=== PATIENT | female | born 1985 | race Caucasian/White ===

== ENCOUNTER 2020-06-01 17:36 | Inpatient (IN) | payer MEDICAID, SELFPAY ==
[2020-06-01 18:02] VITALS: BP 148/73; PULSE 120; RESP 20; TEMP 36.7; O2SAT 98; BMI 24.5
--- NOTE | 2020-06-01 18:44 | ECG_ITS ---
Test Reason : SOB Blood Pressure : / mmHG Vent. Rate : 096 BPM Atrial Rate : 096 BPM P-R Int : 142 ms QRS Dur : 078 ms QT Int : 372 ms P-R-T Axes : 063 058 046 degrees QTc Int : 469 ms Normal sinus rhythm Normal ECG No previous ECGs available Referred By: Estephanie Anguiano Electronically Signed By:MARILYN DIEGO MD
--- NOTE | 2020-06-01 18:44 | XR_ITS ---
EXAMINATION: XR CHEST CLINICAL INFORMATION: Tachycardia COMPARISON: 10/13/2018 TECHNIQUE: Frontal view of the chest was obtained. FINDINGS: No significant abnormality is noted involving the heart, lungs, mediastinum, bony thorax or soft tissues. IMPRESSION: Unremarkable examination.
--- NOTE | 2020-06-01 18:58 | ED_ITS ---
HPI - Alcohol General Chief Complaint: ETOH/Substance Use Stated Complaint: vomiting 3 days Time Seen by Provider: 06/01/20 18:43 Source: patient Mode of arrival: ambulatory Limitations: no limitations History of Present Illness HPI narrative: 34-year-old female presents with acute alcohol withdrawal. She reports drinking approximately 1/5 to 1 gal of vodka daily. She stopped drinking earlier this morning, is visibly in distress, tachycardic, shaking and short of breath. She does have history of alcohol withdrawal seizures. she reports nausea, vomiting and abdominal pain for the past 3 days. MD complaint: alcohol withdrawal Last drink: Hours (ago) ( 8:00 a.m.) Amount of alcohol consumed: 1 gal Chronic alcohol use: Yes Previous visits for alcohol intoxication: Yes Recent trauma: No Associated symptoms: nausea, vomiting, diaphoresis, tremors, abdominal pain and depression Related Data Allergies Allergy/AdvReac Type Severity Reaction Status Date / Time No Known Allergies Allergy Unknown Verified 06/01/20 18:01 Review of Systems Review of Systems: Constitutional: No Weight loss, No Fever, No Chills, No Night Sweats, No Fatigue, No Malaise ENT/Mouth: No Hearing loss, No Ear Pain, No Nasal Congestion, No Sinus Pain, No Hoarseness, No sore throat, No Rhinorrhea, No Swallowing Difficulty Eyes: No Eye Pain, No Swelling, No Redness, No Foreign Body, No Discharge, No Vision Changes Cardiovascular: positive Palpitations, shortness of breath, No Dyspnea on Exertion, No Orthopnea, No Edema Respiratory: No Cough, No Sputum, No Wheezing, No Smoke Exposure, No Dyspnea Gastrointestinal: Positive Nausea, Positive Vomiting, positive Diarrhea, positiv e abdominal Pain, No Hematochezia, No Melena Genitourinary: no irregular bleeding, No Dysuria, No Urinary Frequency, No Hematuria, No Urinary Incontinence, No Urgency, No Flank Pain, No Urinary Flow Changes, No Hesitancy Musculoskeletal: No joint pain, No Myalgias, No Joint Swelling Skin: No Skin Lesions, No rash Neuro: No Weakness, No Numbness, No Paresthesias, No Loss of Consciousness, No Dizziness, No Headache Psych: No Anxiety/Panic, No Depression, No SI/HI/AH/VH, No Social Issues, Heme /Lymph: No Bruising, No Bleeding,No Lymphadenopathy Endocrine: No Polyuria, No Polydipsia, No Temperature Intolerance PMFSH Past Medical History Attestation statement: The following information was validated with the patient. Medical History EtOH dependence Social History Social History Smoking Status: Current every day smoker Smoked in Last 30 Days: No Use of substances other than those prescribed or required for medical reasons: Yes Substance Use Type: Marijuana Substance Use Frequency: Occasionally Last Used Substance: Days (ago) Any prior treatment program specific to substance use: Yes Advance Directives: No Advance Directives Information Provided: Yes Physical Exam Vital Signs: Vital Signs: Vital Signs Temp Pulse Resp BP Pulse Ox 06/01/20 22:00 120 H 18 126/89 06/01/20 21:07 97 06/01/20 20:27 112 H 24 H 126/79 06/01/20 18:02 98.1 F 120 H 20 148/73 H 98 Body Mass Index 24.5 Appearance: Alert. Oriented X3. moderate distress Eyes: Pupils equal, round and reactive to light. ENT: Pharynx normal. Neck: Normal inspection. Neck supple. CVS: tachycardic, tachypneic, diaphoretic. Pulses normal. Respiratory: tachypneic Breath sounds normal. Abdomen: Soft and tender diffusely Skin: Skin warm and dry. Normal skin color. Normal skin turgor. Extremities: No lower extremity edema. Neuro: Oriented X 3. No motor deficit. No sensory deficit. Course Course Course Narrative: patient presents in apparent distress, alcohol withdrawal, will rule out ACS as she is tachycardic with a rate of 122, tremors. We will resuscitate fluids, give IV Ativan prevent seizure as she does report having alcohol withdrawal seizures. Last drink was 8:00 a.m. this morning, she drinks approximately 1 gal of alcohol per day. Banana bag ordered, 50 mg of Librium given per request of the patient. Discussion with patient regarding plan of care, patient would like to stop usi ng alcohol and would like admission. Phenobarbital protocol started. Discussion with hospitalist for admission. Consultations Consultation #1: Amelie Time: 21:40 MDM - Alcohol MDM Narrative Medical decision making narrative: ACS, pneumonia Differential Diagnosis Differential diagnosis: Likely alcohol dependence, alcohol withdrawal syndrome and alcohol withdrawal seizure Medical Records Attestation: I reviewed the patient's medical records. Lab Data Attestation: I reviewed the patient's lab results. Result diagrams: 06/01/20 19:13 06/01/20 19:13 Labs: Lab Results 06/01/20 06/01/20 06/01/20 Range/Units 19:13 19:13 19:13 WBC 12.5 H (4.8-10.8) X10*3/uL RBC 4.69 (4.20-5.50) X10*6/uL Hgb 15.4 (12.0-16.0) g/dl Hct 43.5 (37-47) % MCV 92.8 (80-98) fL MCH 32.8 (27.0-33.0) pg MCHC 35.4 H (31.0-35.0) g/dl RDW 13.0 (11.0-16.0) % Plt Count 416 H (160-400) X10*3/uL MPV 9.2 L (9.4-12.3) fL Immature Gran % (Auto) 1.0 H (0.0-0.4) % Neut % (Auto) 73.4 H (45-73) % Lymph % (Auto) 20.1 (20-40) % [place] % (Auto) 4.4 (2-11) % Eos % (Auto) 0.6 (0-4) % Baso % (Auto) 0.5 (0-2) % Lymph # (Auto) 2.5 (1.2-4.9) X10*3/uL [place] # (Auto) 0.6 (0.1-1.2) X10*3/uL Eos # (Auto) 0.1 (0.0-0.4) X10*3/uL Baso # (Auto) 0.1 (0.0-0.2) X10*3/uL Abs Immat Gran (auto) 0.13 H (0.00-0.03) X10*3/uL Absolute Neuts (auto) 9.2 H (2.0-8.3) X10*3/uL Absolute Nucleated RBC 0.000 (0.0-0.012) X10*3/uL Nucleated RBC % (auto) 0.0 (0.0-0.2) /100WBC Sodium 138 (135-145) mmol/L Potassium 3.2 L (3.3-5.1) mmol/l Chloride 98 (96-108) mmol/L Carbon Dioxide 23 (22-29) mmol/L Anion Gap 20 (12-20) BUN 9 (9-16) mg/dL Creatinine 0.96 (0.5-1.4) mg/dL Estim Creat Clear Calc 69.4 Estimated GFR > 60 Random Glucose 179 H (60-115) mg/dL Calcium 10.4 H (8.4-10.2) mg/dL Magnesium 1.8 (1.6-2.6) mg/dL Total Bilirubin 1.6 H (0.0-1.0) mg/dL Direct Bilirubin (0.0-0.5) mg/dL AST 124 H (5-31) U/L ALT 54 H (0-31) U/L Alkaline Phosphatase 85 (39-117) U/L Troponin I High Sens < 3.5 (<3.5-17.0) ng/L Total Protein 9.4 H (6.5-8.0) g/dL Albumin 5.4 H (3.5-5.0) g/dL Lipase (8-78) U/L Ethyl Alcohol mg/dL 06/01/20 06/01/20 Range/Units 19:13 19:13 WBC (4.8-10.8) X10*3/uL RBC (4.20-5.50) X10*6/uL Hgb (12.0-16.0) g/dl Hct (37-47) % MCV (80-98) fL MCH (27.0-33.0) pg MCHC (31.0-35.0) g/dl RDW (11.0-16.0) % Plt Count (160-400) X10*3/uL MPV (9.4-12.3) fL Immature Gran % (Auto) (0.0-0.4) % Neut % (Auto) (45-73) % Lymph % (Auto) (20-40) % [place] % (Auto) (2-11) % Eos % (Auto) (0-4) % Baso % (Auto) (0-2) % Lymph # (Auto) (1.2-4.9) X10*3/uL [place] # (Auto) (0.1-1.2) X10*3/uL Eos # (Auto) (0.0-0.4) X10*3/uL Baso # (Auto) (0.0-0.2) X10*3/uL Abs Immat Gran (auto) (0.00-0.03) X10*3/uL Absolute Neuts (auto) (2.0-8.3) X10*3/uL Absolute Nucleated RBC (0.0-0.012) X10*3/uL Nucleated RBC % (auto) (0.0-0.2) /100WBC Sodium (135-145) mmol/L Potassium (3.3-5.1) mmol/l Chloride (96-108) mmol/L Carbon Dioxide (22-29) mmol/L Anion Gap (12-20) BUN (9-16) mg/dL Creatinine (0.5-1.4) mg/dL Estim Creat Clear Calc Estimated GFR Random Glucose (60-115) mg/dL Calcium (8.4-10.2) mg/dL Magnesium (1.6-2.6) mg/dL Total Bilirubin 1.6 H (0.0-1.0) mg/dL Direct Bilirubin 0.7 H (0.0-0.5) mg/dL AST 124 H (5-31) U/L ALT 54 H (0-31) U/L Alkaline Phosphatase 84 (39-117) U/L Troponin I High Sens (<3.5-17.0) ng/L Total Protein 9.4 H (6.5-8.0) g/dL Albumin 5.4 H (3.5-5.0) g/dL Lipase 22 (8-78) U/L Ethyl Alcohol 12 mg/dL Imaging Data Chest x-ray: Attestation: I personally reviewed and interpreted this imaging study as follows: Radiologist's impression: TECHNIQUE: Frontal view of the chest was obtained. FINDINGS: No significant abnormality is noted involving the heart, lungs, mediastinum, bony thorax or soft tissues. IMPRESSION: Unremarkable examination. ECG Data Attestation: I personally reviewed and interpreted this ECG as follows: ECG interpretation date: 06/01/20 ECG interpretation time: 19:26 Interpretation: Vent. Rate : 096 BPM Atrial Rate : 096 BPM P-R Int : 142 ms QRS Dur : 078 ms QT Int : 372 ms P-R-T Axes : 063 058 046 degrees QTc Int : 469 ms Normal sinus rhythm Normal ECG No previous ECGs available Critical Care Time Critical Care Time Critical Care Time: Yes Total Critical Care Time: 60 Attestation: I have personally provided critical care time exclusive of time spent on separately billable procedures. Time includes review of laboratory data, radiology results, discussion with consultants, and monitoring for potential decompensation. Interventions were performed as documented. Discharge Plan Discharge Clinical Impression: Alcohol withdrawal syndrome Qualifiers: Complication of substance-induced condition: uncomplicated Qualified Code(s): F10.230 - Alcohol dependence with withdrawal, uncomplicated Patient Disposition: Admitted As Inpatient
[2020-06-01] MEDS: 0.9 % Sodium Chloride 1,000 ML 999 ML IVCONT (19:11)
[2020-06-01] MEDS: LORazepam 2 MG/ML VIAL IVPUSH (19:12)
[2020-06-01 19:22] LABS: MANUAL DIFF FLAG NO
[2020-06-01 19:31] LABS: Basophils Absolute Auto 0.1 X10*3/uL (0.0-0.2); Basophils Percent Auto 0.5 % (0-2); Eosinophils Absolute Auto 0.1 X10*3/uL (0.0-0.4); Eosinophils Percent Auto 0.6 % (0-4); Hematocrit 43.5 % (37-47); Hemoglobin 15.4 g/dl (12.0-16.0); Imm Gran Abs Auto 0.13 X10*3/uL (0.00-0.03); Lymphocytes Absolute Auto 2.5 X10*3/uL (1.2-4.9); Lymphocytes Percent Auto 20.1 % (20-40); Mean Corpuscular HGB Conc 35.4 g/dl (31.0-35.0); Mean Corpuscular Hemoglobin 32.8 pg (27.0-33.0); Mean Corpuscular Volume 92.8 fL (80-98); Mean Platelet Volume 9.2 fL (9.4-12.3); Monocytes Absolute Auto 0.6 X10*3/uL (0.1-1.2); Monocytes Percent Auto 4.4 % (2-11); Neutrophils Absolute Auto 9.2 X10*3/uL (2.0-8.3); Neutrophils Percent Auto 73.4 % (45-73); Platelet Count 416 X10*3/uL (160-400); Red Blood Count 4.69 X10*6/uL (4.20-5.50); White Blood Count 12.5 X10*3/uL (4.8-10.8)
[2020-06-01] MEDS: diphenhydrAMINE HCL 50 MG/ML VIAL IVPUSH (19:51)
[2020-06-01] MEDS: Metoclopramide HCl 10 MG/2 ML VIAL IVPUSH (19:51)
[2020-06-01] MEDS: chlordiazePOXIDE HCl 25 MG CAPSULE 50 MG PO (19:52)
[2020-06-01 19:59] LABS: Alanine Aminotransferase 54 U/L (0-31); Albumin Level 5.4 g/dL (3.5-5.0); Alkaline Phosphatase 85 U/L (39-117); Aspartate Amino Transferase 124 U/L (5-31); Bilirubin Total 1.6 mg/dL (0.0-1.0); Blood Urea Nitrogen 9 mg/dL (9-16); Creatinine Clr Calc Pharmacy 69.4; Estimated Glomerular Filt Rate > 60; Glucose Random 179 mg/dL (60-115); Magnesium 1.8 mg/dL (1.6-2.6); Total Protein 9.4 g/dL (6.5-8.0)
[2020-06-01 20:04] LABS: Troponin-I High Sensitivity < 3.5 ng/L (<3.5-17.0)
[2020-06-01 20:09] LABS: Anion Gap 20 (12-20); Calcium 10.4 mg/dL (8.4-10.2); Carbon Dioxide 23 mmol/L (22-29); Chloride 98 mmol/L (96-108); Potassium 3.2 mmol/l (3.3-5.1); Sodium 138 mmol/L (135-145)
[2020-06-01 20:27] VITALS: BP 126/79; PULSE 112; RESP 24
[2020-06-01 21:07] VITALS: O2SAT 97
[2020-06-01 21:07] LABS: Ethanol 12 mg/dL
[2020-06-01 21:11] LABS: Alanine Aminotransferase 54 U/L (0-31); Albumin Level 5.4 g/dL (3.5-5.0); Alkaline Phosphatase 84 U/L (39-117); Aspartate Amino Transferase 124 U/L (5-31); Bilirubin Direct 0.7 mg/dL (0.0-0.5); Bilirubin Total 1.6 mg/dL (0.0-1.0); Lipase 22 U/L (8-78); Total Protein 9.4 g/dL (6.5-8.0)
[2020-06-01 22:00] VITALS: BP 126/89; PULSE 120; RESP 18
[2020-06-01] MEDS: PHENobarbitaL sodium 130 MG/ML VIAL 229 MG IM (22:27)
--- NOTE | 2020-06-01 22:31 | PC.NURSE ---
patient medicated per order, patients sinus tach on diagnostic cardiac sonographer low 100s, will continue to monitor.
[2020-06-02] VITALS (9 sets, daily range): BP systolic 109–138; BP diastolic 62–87; PULSE 78–97; RESP 16–18; TEMP 36.2–36.7; O2SAT 95–100
[2020-06-02 02:13] LABS: Amphetamine Screen Urine Not Detected (Not Detect); Barbiturates, Urine Not Detected (Not Detect); Benzodiazepines Screen Urine POSITIVE (Not Detect); Cannabinoid Screen Urine POSITIVE (Not Detect); Cocaine Screen Urine POSITIVE (Not Detect); Opiate Screen Urine Not Detected (Not Detect); Phencyclidine Screen Urine Not Detected (Not Detect)
[2020-06-02] MEDS: PHENobarbitaL sodium 130 MG/ML VIAL 171 MG IM ×2 (02:40→05:01)
[2020-06-02] MEDS: 0.9 % Sodium Chloride Flush 3 ML SYRINGE IVFLUSH ×4 (02:43→21:38)
--- NOTE | 2020-06-02 05:22 | P.HPIM_ITS ---
History of Present Illness Date of Service: 06/01/20 Chief Complaint: alcohol withdrawal this is a 34-year-old female with past medical history of anxiety and depression, polysubstance abuse including alcohol and cocaine as well as Percocet abuse in the past presents to the hospital reporting nausea and vomiting and alcohol withdrawal. patient is significantly lethargic and unable to give me any history. She is unable to stay awake for more than seconds. When asked her what brought into the hospital she tells me that she was dehydrated but then falls back asleep. Therefore history is obtained mostly from EMR. It appears the patient was recently prescribed Librium for alcohol withdrawals. Was supposed to go to detox but could not due to lack of exceptional children teacher. She ran out of Librium and has been vomiting for 3 days. unable to obtain full review of system is patient is very lethargic and unwilling cyst a up long enough On arrival to the ED hemodynamically stable with no significant abnormal vitals Except for an increased in heart rate to 120. improved to 87. Lab significant for WBC count of 12, potassium 3.2, calcium 10.4, total bili of 1.6, AST of 124, ALT of 54, UDS UDS positive for benzodiazepine cocaine and marijuana unable to obtain past medical history from patient past medical history: Polysubstance abuse, anxiety and depression, alcohol dependence past surgical history: Unknown family history: Unknown social history: comes from home, abuses cocaine, alcohol, UDS is positive for benzos Review of Systems Review of Systems: Yes all other systems are reviewed and are negative PMFSH Medical History EtOH dependence Social History Smoking Status: Current every day smoker Smoked in Last 30 Days: No Use of substances other than those prescribed or required for medical reasons: Yes Substance Use Type: Marijuana Substance Use Frequency: Occasionally Last Used Substance: Days (ago) Currently Displaying Signs/Symptoms of Drug Intoxication Withdrawal: No Any prior treatment program specific to substance use: Yes Advance Directives: No Advance Directives Information Provided: Yes Do you have thoughts of harming others: None Do you have a plan to hurt others: No Plan Meds Allergies Allergy/AdvReac Type Severity Reaction Status Date / Time No Known Allergies Allergy Unknown Verified 06/01/20 18:01 Home Medications Medication Instructions Recorded Confirmed Type No Known Home Meds 06/02/20 06/02/20 History Physical Exam Vital Signs and Narrative: Vital Signs: Last Vital Signs Temp 97.5 F 06/02/20 02:41 Pulse 87 06/02/20 02:41 Resp 16 06/02/20 03:44 BP 112/64 06/02/20 02:41 Pulse Ox 95 06/02/20 02:41 Body Mass Index 24.5 Const: Other: patient is somnolent but arousable, unable to stay long enough to give full history otherwise does not appear to be in distress General: no acute distress Eyes: General: appearance normal, both eyes and all related structures Pupils: Equal, round and reactive pupils present Resp: Effort & Inspection: normal respiratory effort, able to speak in complete sentences and abnormal respiratory pattern Auscultation: clear to auscultation bilaterally Cardio: Rate: regular rate Rhythm: regular rhythm GI: Palpation (GI): Soft to palpation Auscultation: normal bowel sounds Skin: General skin exam: no rashes or lesions noted Neuro: Cranial nerves: Yes Equal, round and reactive pupils present Cognition (Neuro): normal cognition Extrem: General: Yes normal to inspection and Yes no pedal edema Results Labs Labs: Laboratory Tests 06/01/20 06/01/20 06/01/20 19:13 19:13 19:13 WBC 12.5 H RBC 4.69 Hgb 15.4 Hct 43.5 MCV 92.8 MCH 32.8 MCHC 35.4 H RDW 13.0 Plt Count 416 H MPV 9.2 L Immature Gran % (Auto) 1.0 H Neut % (Auto) 73.4 H Lymph % (Auto) 20.1 [place] % (Auto) 4.4 Eos % (Auto) 0.6 Baso % (Auto) 0.5 Lymph # (Auto) 2.5 [place] # (Auto) 0.6 Eos # (Auto) 0.1 Baso # (Auto) 0.1 Abs Immat Gran (auto) 0.13 H Absolute Neuts (auto) 9.2 H Absolute Nucleated RBC 0.000 Nucleated RBC % (auto) 0.0 Sodium 138 Potassium 3.2 L Chloride 98 Carbon Dioxide 23 Anion Gap 20 BUN 9 Creatinine 0.96 Estim Creat Clear Calc 69.4 Estimated GFR > 60 Random Glucose 179 H Calcium 10.4 H Magnesium 1.8 Total Bilirubin 1.6 H Direct Bilirubin AST 124 H ALT 54 H Alkaline Phosphatase 85 Troponin I High Sens < 3.5 Total Protein 9.4 H Albumin 5.4 H Lipase Urine Opiates Screen Ur Barbiturates Screen Ur Phencyclidine Scrn Ur Amphetamines Screen U Benzodiazepines Scrn Urine Cocaine Screen U Marijuana (THC) Screen Ethyl Alcohol 06/01/20 06/01/20 06/02/20 19:13 19:13 01:46 WBC RBC Hgb Hct MCV MCH MCHC RDW Plt Count MPV Immature Gran % (Auto) Neut % (Auto) Lymph % (Auto) [place] % (Auto) Eos % (Auto) Baso % (Auto) Lymph # (Auto) [place] # (Auto) Eos # (Auto) Baso # (Auto) Abs Immat Gran (auto) Absolute Neuts (auto) Absolute Nucleated RBC Nucleated RBC % (auto) Sodium Potassium Chloride Carbon Dioxide Anion Gap BUN Creatinine Estim Creat Clear Calc Estimated GFR Random Glucose Calcium Magnesium Total Bilirubin 1.6 H Direct Bilirubin 0.7 H AST 124 H ALT 54 H Alkaline Phosphatase 84 Troponin I High Sens Total Protein 9.4 H Albumin 5.4 H Lipase 22 Urine Opiates Screen Not Detected Ur Barbiturates Screen Not Detected Ur Phencyclidine Scrn Not Detected Ur Amphetamines Screen Not Detected U Benzodiazepines Scrn POSITIVE H Urine Cocaine Screen POSITIVE H U Marijuana (THC) Screen POSITIVE H Ethyl Alcohol 12 Assessment and Plan (1) Alcohol withdrawal syndrome: Qualifiers: Complication of substance-induced condition: uncomplicated Qualified Code(s): F10.230 - Alcohol dependence with withdrawal, uncomplicated Status: Acute (2) EtOH dependence: Status: Acute (3) Anxiety and depression: Status: Acute this is a 34-year-old female who presents to the hospital for detox of alcohol # alcohol withdrawal - has nausea vomiting, tremors - was on Librium for ran out and return to the hospital in withdrawal symptoms - is interested in completely quitting plan: - Patient started on phenobarbital in the ED, will continue( drinks about 1 gal of vodka daily) - folic acid - thiamine - continue crisis team consult ordered by ED # depression anxiety - monitor DVT prophylaxis: Lovenox date of service 06/01/2020
[2020-06-02 07:55] LABS: MANUAL DIFF FLAG NO
[2020-06-02 08:09] LABS: Basophils Absolute Auto 0.1 X10*3/uL (0.0-0.2); Basophils Percent Auto 0.5 % (0-2); Eosinophils Absolute Auto 0.2 X10*3/uL (0.0-0.4); Eosinophils Percent Auto 2.2 % (0-4); Hematocrit 34.1 % (37-47); Hemoglobin 11.9 g/dl (12.0-16.0); Imm Gran Abs Auto 0.04 X10*3/uL (0.00-0.03); Imm Gran Pct Auto 0.4 % (0.0-0.4); Lymphocytes Absolute Auto 2.8 X10*3/uL (1.2-4.9); Lymphocytes Percent Auto 28.5 % (20-40); Mean Corpuscular HGB Conc 34.9 g/dl (31.0-35.0); Mean Corpuscular Hemoglobin 33.1 pg (27.0-33.0); Mean Platelet Volume 9.3 fL (9.4-12.3); Monocytes Absolute Auto 0.6 X10*3/uL (0.1-1.2); Monocytes Percent Auto 6.5 % (2-11); Neutrophils Absolute Auto 6.1 X10*3/uL (2.0-8.3); Neutrophils Percent Auto 61.9 % (45-73); Platelet Count 313 X10*3/uL (160-400); Red Blood Count 3.59 X10*6/uL (4.20-5.50); Red Cell Distribution Width 12.9 % (11.0-16.0); White Blood Count 9.8 X10*3/uL (4.8-10.8)
[2020-06-02] MEDS: Folic Acid 1 MG TABLET PO (08:27)
[2020-06-02] MEDS: Thiamine HCL 100 MG TABLET PO (08:27)
[2020-06-02] MEDS: Acetaminophen 325 MG TABLET 650 MG PO (08:30)
[2020-06-02 08:42] LABS: Anion Gap 10 (12-20); Blood Urea Nitrogen 12 mg/dL (9-16); Carbon Dioxide 27 mmol/L (22-29); Chloride 103 mmol/L (96-108); Creatinine Clr Calc Pharmacy 82.2; Estimated Glomerular Filt Rate > 60; Glucose Random 105 mg/dL (60-115); Sodium 136 mmol/L (135-145)
--- NOTE | 2020-06-02 10:00 | PC.NURSE ---
Dr. Johnson aware of pt wbc 34.6
--- NOTE | 2020-06-02 12:14 | MHC.CM.PN ---
PATIENT VERIFIES THAT SHE HAS TWO CHILDREN. ONE 15 YEAR OLD MALE AND AN 11 MONTH OLD DAUGHTER. SHE REPORTS THAT BOTH CHILDREN ARE WITH THEIR FATHER WHO LIVES ELSEWHERE. PATIENT IS AWARE THAT THIS SALES AND MARKETING ASSISTANT HAS DOCUMENTATION STATING THAT THERE ARE CHILDREN IN THE HOME;THEREFORE THE RELATED CONVERSATION. 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 NO DME OR VNA. SHE IS EXPRESSING INTEREST IN A CARE TEAM CONSULT HOSPITALIST MADE AWARE. CASE MANAGMEENT FOLLOWING. THIS SALES AND MARKETING ASSISTANT TO CONTACT [facility] WHEN OFFICE IS OPEN FOR IN DEPTH CONVERSATION. CASE MANAGEMENT AVAILABLE FOR ANY FURTHER DISCHARGE NEEDS.
[2020-06-02] MEDS: Nicotine Polacrilex 2 MG GUM BUCCAL (12:16)
[2020-06-02] MEDS: Throat Lozenge, Medicated LOZENGE 1 LOZENGE MUCOUS MEM (12:16)
--- NOTE | 2020-06-02 14:05 | HO.PM.IMPN ---
Subjective Subjective Date of Service: 06/02/20 Interval History: Alcohol withdrawal Physical Exam Vital Signs: Vital Signs: Vital Signs Temp Pulse Resp BP Pulse Ox 06/02/20 11:07 97.3 F 95 18 117/77 99 06/02/20 08:24 97.5 F 92 18 138/87 98 06/02/20 03:44 16 06/02/20 02:41 97.5 F 87 16 112/64 95 06/02/20 00:00 93 18 126/79 98 06/01/20 22:00 120 H 18 126/89 06/01/20 21:07 97 06/01/20 20:27 112 H 24 H 126/79 06/01/20 18:02 98.1 F 120 H 20 148/73 H 98 Body Mass Index 24.5 physical exam : cvs: rrr, [id number]. res: clear to auscultation ,no rhonchii or wheezing abd: no rebound or guarding ,nt, bs present. ext pulses present , no cyanosis neuro: axo3 , nonfocal ,still has tremers Objective Data Current Medications Generic Name Dose Route Start Last Admin Trade Name Freq PRN Reason Stop Dose Admin Acetaminophen 650 mg 06/02/20 09:33 06/02/20 08:30 Acetaminophen 325 Mg Tablet PO 650 mg Q6H PRN Administration Pain and Fever Benzocaine 1 lozenge 06/02/20 10:44 06/02/20 12:16 Throat Lozenge, Medicated Lozenge MUCOUS MEM 1 lozenge Q2H PRN Administration Sore Throat Docusate Sodium 100 mg 06/02/20 02:28 Docusate Sodium 100 Mg Capsule PO DAILY PRN Constipation Folic Acid 1 mg 06/02/20 09:00 06/02/20 08:27 Folic Acid 1 Mg Tablet PO 1 mg DAILY IRISH Administration Medication 1 each 06/02/20 09:00 No Benzodiazepines MISCELLANE DAILY IRISH Nicotine Polacrilex 2 mg 06/02/20 10:42 06/02/20 12:16 Nicotine Polacrilex 2 Mg Gum BUCCAL 2 mg Q2H PRN Administration Nicotine Cravings Ondansetron HCl 4 mg 06/02/20 02:28 Ondansetron Hcl 4 Mg/2 Ml Vial IVPUSH Q8H PRN Nausea and Vomiting Phenobarbital 45 mg 06/03/20 09:00 Phenobarbital 15 Mg Tablet PO 06/04/20 21:01 BID IRISH Phenobarbital 30 mg 06/05/20 09:00 Phenobarbital 30 Mg Tablet PO 06/06/20 21:01 BID IRISH Phenobarbital 15 mg 06/07/20 09:00 Phenobarbital 15 Mg Tablet PO 06/08/20 09:01 DAILY IRISH Sodium Chloride 3 ml 06/02/20 02:28 06/02/20 08:30 0.9 % Sodium Chloride Flush 3 Ml Syringe IVFLUSH 3 ml QSHIFT IRISH Administration Thiamine HCl 100 mg 06/02/20 09:00 06/02/20 08:27 Thiamine Hcl 100 Mg Tablet PO 100 mg DAILY IRISH Administration Labs CBC & Chem 7: 06/02/20 07:31 06/02/20 07:31 Assessment and Plan (1) Alcohol withdrawal syndrome: Status: Acute Assessment and Plan: 1.alcohol withdrawal Nausea vomiting improving, still has tremors. was on Librium for ran out and return to the hospital in withdrawal symptoms is interested in completely quitting Continue CIWA, phenobarb protocol, folic acid, thiamine. 2. Smoking: We will add nicotine patch. 3. depression anxiety - monitor, we may add clondine , atrax
[2020-06-02] MEDS: cloNIDine HCL 0.1 MG TABLET PO ×2 (16:17→21:35)
[2020-06-02] MEDS: PHENobarbitaL 15 MG TABLET 45 MG PO (22:13)
[2020-06-03 04:04] VITALS: BP 106/75; PULSE 90; RESP 18; TEMP 36.2; O2SAT 99
[2020-06-03 07:25] LABS: Alanine Aminotransferase 48 U/L (0-31); Alkaline Phosphatase 61 U/L (39-117); Anion Gap 12 (12-20); Aspartate Amino Transferase 94 U/L (5-31); Bilirubin Direct 0.2 mg/dL (0.0-0.5); Bilirubin Total 0.5 mg/dL (0.0-1.0); Blood Urea Nitrogen 14 mg/dL (9-16); Calcium 9.3 mg/dL (8.4-10.2); Carbon Dioxide 26 mmol/L (22-29); Chloride 103 mmol/L (96-108); Creatinine Clr Calc Pharmacy 82.2; Estimated Glomerular Filt Rate > 60; Glucose Random 113 mg/dL (60-115); Sodium 137 mmol/L (135-145); Total Protein 6.9 g/dL (6.5-8.0)
[2020-06-03] MEDS: Thiamine HCL 100 MG TABLET PO (07:28)
[2020-06-03] MEDS: Folic Acid 1 MG TABLET PO (07:28)
[2020-06-03] MEDS: cloNIDine HCL 0.1 MG TABLET PO (07:28)
[2020-06-03] MEDS: PHENobarbitaL 15 MG TABLET 45 MG PO (07:29)
[2020-06-03] MEDS: 0.9 % Sodium Chloride Flush 3 ML SYRINGE IVFLUSH (07:30)
[2020-06-03 07:43] VITALS: BP 114/73; PULSE 78; RESP 19; TEMP 36.5; O2SAT 100
--- NOTE | 2020-06-03 08:59 | MHC.CM.PN ---
dc plan is for patient to return home no svcs. call will need to be made to [facility] during the week, unable to do so today as it is state holiday. cm to cont. to follow.
--- NOTE | 2020-06-03 09:26 | MHC.CARE ---
CARE Team consult RE: alcohol CARE Team met with the 34 year old Arabic speaking female in bed 377-1 of S3 to discuss alcohol use and recovery supports. Patient reports she gets anxious at night and feels her heart racing which prompts her to start drinking. Patient reports when she wakes up feeling sick she will sometimes reach for a drink as well. Patient reports that she tries to manage the anxiety with coping skills, including deep breathing and taking showers, however she feels as though it is too severe and she would benefit from anxiety medication. Discussed with patient outpatient therapy and getting connected with a psychiatrist. Patient reports she was previously getting counseling through [email or web address] in [place] and that she found it helpful. Patient provided with the number for [email or web address], in addition to other therapy agencies, and was encouraged to reach out to them to restart services. Patient reports she is also waiting to get connected with a PCP through [facility]. Patient informed that her PCP may be able to prescribe her medication for anxiety, and that a therapist would be able to refer her to psychiatry for medication management. Patient acknowledged and reported no questions regarding this process. Patient reports that she was previously addicted to pain medication and that she got on Suboxone and then stopped the Suboxone with the support of a therapist. Patient reports during that time, she became familiar with recovery supports in the community such as support groups. Patient reports she is not interested in support groups at this time, however patient accepted information on Intensive Outpatient Programs in the area, specifically a Dual Diagnosis group run by [facility]. Patient reports that at times she has cravings to have a drink. This insurance underwriter sales discussed Vivitrol/ Naltrexone with patient and provided her with information on the [facility] where she could receive this medication. This insurance underwriter sales also discussed additional coping techniques that patient can employ when feeling anxious or having cravings. Patient reports she has also been reducing her nicotine consumption and is down to just one cigarette a day. Patient reports that her Father relapsed on alcohol after 10 years of sobriety and that he is also trying to get into recovery. Patient encouraged to reach out to family and friends for support when she feels like she may relapse. Patient acknowledged and reports no questions at this time regarding the resources provided. Discussed case with patient's RN, Geno. CARE Team available as needed.
[2020-06-03 11:21] VITALS: BP 113/69; PULSE 79; RESP 18; TEMP 36.3; O2SAT 99
[2020-06-03 14:42] LABS: CDIFF Ag Negative (Negative); CDIFF Internal ctrl Dots and bkg OK (V); CDiff Toxin Negative (Negative)
[2020-06-03 15:06] LABS: Leukocytes Stool Qualitative NEGATIVE (NEGATIVE)
[2020-06-03 16:00] VITALS: BP 119/72; PULSE 76; TEMP 35.9; O2SAT 99
--- NOTE | 2020-06-03 17:54 | PM.DS ---
DS: Providers Provider Date of admission: 06/01/20 22:41 Primary care physician: Courtney Machuca MD Consults: 06/03/20 08:00 Consult to Care Team Routine Comment: Reason for consultation: alcohol DS: Diagnosis Discharge Diagnosis (1) Alcohol withdrawal syndrome: Status: Acute DS: Summary Hospital Course Hospital Course: HPI:34-year-old female with past medical history of anxiety and depression, polysubstance abuse including alcohol and cocaine as well as Percocet abuse in the past presents to the hospital reporting nausea and vomiting and alcohol withdrawal. patient is significantly lethargic and unable to give me any history. She is unable to stay awake for more than seconds. When asked her what brought into the hospital she tells me that she was dehydrated but then falls back asleep. Therefore history is obtained mostly from EMR. It appears the patient was recently prescribed Librium for alcohol withdrawals. Was supposed to go to detox but could not due to lack of attendant [facility]. She ran out of Librium and has been vomiting for 3 days. unable to obtain full review of system is patient is very lethargic and unwilling cyst a up long enough On arrival to the ED hemodynamically stable with no significant abnormal vitals Except for an increased in heart rate to 120. improved to 87. Lab significant for WBC count of 12, potassium 3.2, calcium 10.4, total bili of 1.6, AST of 124, ALT of 54, UDS UDS positive for benzodiazepine cocaine and marijuana unable to obtain past medical history from patient past medical history: Polysubstance abuse, anxiety and depression, alcohol dependence. Hospital course problem wagner section: Patient came with alcohol withdrawal -started on phenobarb protocol : subsequently patient improved significantly. going home with small dose of Atarax because of anxiety limited supply - patient was told to make the PCP appointment and follow-up outpatient. patient had few loose bowel movements initially which has improved significantly, she said that when she is drinks excessive alcohol she has this episodes : now seems improving. stool for WBC and C diff negative. patient denies any abdominal pain or fever . if her diarrhea worsens or any abdominal pain she can come back to the nearest emergency room. patient also has mild elevated of LFTs which are improving probably , probably elevated LFT related to alcohol use, patient was told to repeat LFTs with PCP and get an PCP appointment out patiently. Patient initially had hypokalemia which was repleted and improved also her mild hyper calcemia improved with hydration. please repeat renal function and electrolytes outpatient with PCP and further management outpatient. Time Spent with Patient Time attestation: Total time spent providing and/or coordinating discharge services: Physical Exam Vital Signs: Vital Signs: Vital Signs Temp Pulse Resp BP Pulse Ox 06/03/20 16:00 96.7 F L 76 119/72 99 06/03/20 11:21 97.3 F 79 18 113/69 99 06/03/20 07:43 97.7 F 78 19 114/73 100 06/03/20 04:04 97.1 F 90 18 106/75 99 06/02/20 23:34 98.1 F 95 18 109/62 100 06/02/20 21:35 78 117/76 06/02/20 19:25 97.5 F 97 112/70 99 Body Mass Index 24.5 DS: Data Data Completed and Pending Labs on day of discharge: Labs from last 24 hours 06/03/20 06/03/20 06/03/20 13:44 13:44 06:29 Sodium 137 Potassium 4.0 Chloride 103 Carbon Dioxide 26 Anion Gap 12 BUN 14 Creatinine 0.81 Estim Creat Clear Calc 82.2 Estimated GFR > 60 Random Glucose 113 Calcium 9.3 Total Bilirubin 0.5 Direct Bilirubin 0.2 AST 94 H ALT 48 H Alkaline Phosphatase 61 D Total Protein 6.9 D Albumin 4.0 D Stool Leukocytes, Qual NEGATIVE C. difficile Toxin A&B Negative C. difficile Antigen Negative C. difficile Interpret SEE NOTE Discharge Plan Discharge Patient Disposition: Home, Self-Care Referrals: Courtney Todd MD [Primary Care Provider] - Discharge Medications: New nicotine (polacrilex) 2 mg Gum 2 mg buccal Q2H PRN (Reason: Nicotine Cravings) Qty: 20 RF: 0 hydroxyzine HCl 25 mg Tablet 25 mg PO Q8H PRN (Reason: Anxiety) Qty: 4 RF: 0 Discharge Orders: Discharge Order (Routine); Ordered 06/03/20 Ordered By: Lesli Pathak Diet: advance to your usual diet Activity on Discharge: As tolerated Visit Report Forms: Patient Portal Discharge page Care Plan Goals: Patient came with alcohol withdrawal -started on phenobarb protocol : subsequently patient improved significantly. going home with small dose of Atarax because of anxiety limited supply - patient was told to make the PCP appointment and follow-up outpatient. patient had few loose bowel movements initially which has improved significantly, she said that when she is drinks excessive alcohol she has this episodes : now seems improving. stool for WBC and C diff negative. patient denies any abdominal pain or fever . if her diarrhea worsens or any abdominal pain she can come back to the nearest emergency room. Health Concerns: As above. Plan of Treatment: As above.
[2020-06-03] MEDS: hydrOXYzine HCL 25 MG TABLET PO (18:13)
[2020-06-03] MEDS: Nicotine Polacrilex 2 MG GUM BUCCAL (19:35)
== END 2020-06-03 19:30 | disposition home or self-care (01) | DRG 775 ==
LOC: HO.ED 22:31 → HO.S3 22:55
PROVIDERS: Nurse Practitioner Family; Admitting Provider Internal Medicine; Emergency Provider Emergency Medicine Emergency Medical Services; PCP Internal Medicine; Visit Provider Internal Medicine
DX: F10.230 Alcohol dependence with withdrawal, uncomplicated (principal); F17.210 Nicotine dependence, cigarettes, uncomplicated; F41.9 Anxiety disorder, unspecified; F32.9 Major depressive disorder, single episode, unspecified; F19.10 Other psychoactive substance abuse, uncomplicated; Z71.6 Tobacco abuse counseling; Z79.899 Other long term (current) drug therapy
CPT/HCPCS: 36415; 71045; 80048; 80053; 80076; 80307; 80320; 83690; 83735; 84484; 85025; 87324; 87449; 89055; 93005; 96361; 96365; 96372; 96375; 99285; 99291; J1200; J2060; J2560; J2765; J3411

== ENCOUNTER 2020-06-08 14:26 | Emergency (ER) | payer OTHER, SELFPAY ==
[2020-06-08 14:37] VITALS: BP 136/88; PULSE 97; RESP 16; TEMP 36.8; O2SAT 99; BMI 24.5
--- NOTE | 2020-06-08 16:35 | ED.SKABFB ---
HPI - Skin/Abscess/Foreign Bdy General Chief complaint: Skin/Abscess/Foreign Body Stated complaint: swelling at flu injection spot Time Seen by Provider: 06/08/20 14:49 Source: patient Mode of arrival: ambulatory Limitations: no limitations History of Present Illness HPI narrative: 32-year-old female presenting with tender area to the left buttock after receiving IM injection. States she was in the hospital for alcohol withdrawal for which she received IM injection of phenobarbital. States otherwise she has been doing very well has not drink in over a week. States she noticed it slight tender area. There is no redness, swelling, discharge. MD complaint: other Onset (ago): day(s) Tetanus up to date: yes Location: buttocks ( Left buttock) Severity: mild Related Data Previous Rx's Medication Instructions Recorded hydroxyzine HCl 25 mg PO Q8H PRN #4 tab 06/03/20 nicotine (polacrilex) 2 mg BUCCAL Q2H PRN #20 ea 06/03/20 Allergies Allergy/AdvReac Type Severity Reaction Status Date / Time No Known Allergies Allergy Unknown Verified 06/01/20 18:01 Review of Systems Review of Systems: Constitutional: No Weight loss, No Fever, No Chills, No Night Sweats, No Fatigue, No Malaise ENT/Mouth: No Hearing loss, No Ear Pain, No Nasal Congestion, No Sinus Pain, No Hoarseness, No sore throat, No Rhinorrhea, No Swallowing Difficulty Eyes: No Eye Pain, No Swelling, No Redness, No Foreign Body, No Discharge, No Vision Changes Cardiovascular: No Chest Pain, No SOB, No Dyspnea on Exertion, No Orthopnea, No Edema, No Palpitations Respiratory: No Cough, No Sputum, No Wheezing, No Smoke Exposure, No Dyspnea Gastrointestinal: No Nausea, No Vomiting, No Diarrhea, No Constipation, No abdominal Pain, No Hematochezia, No Melena Genitourinary: no irregular bleeding, No Dysuria, No Urinary Frequency, No Hematuria, No Urinary Incontinence, No Urgency, No Flank Pain, No Urinary Flow Changes, No Hesitancy Musculoskeletal: No joint pain, No Myalgias, No Joint Swelling Skin: No Skin Lesions, No rash Neuro: No Weakness, No Numbness, No Paresthesias, No Loss of Consciousness, No Dizziness, No Headache Psych: No Anxiety/Panic, No Depression, No SI/HI/AH/VH, No Social Issues Heme/Lymph: No Bruising, No Bleeding,No Lymphadenopathy Endocrine: No Polyuria, No Polydipsia, No Temperature Intolerance Yes all other systems are reviewed and are negative [facility] Past Medical History Attestation statement: The following information was validated with the patient. Medical History (Updated 06/08/20 @ 14:51 by Archie Tapia NP) EtOH dependence Social History Social History Smoking Status: Current every day smoker Substance Use Type: Marijuana Advance Directives: No Advance Directives Information Provided: No Physical Exam Vital Signs: Vital Signs: Vital Signs Temp Pulse Resp BP Pulse Ox 06/08/20 14:37 98.2 F 97 16 136/88 99 Body Mass Index 24.5 Reviewed Const: General: cooperative and healthy appearing; No acute distress or intoxicated appearing Nutritional Appearance: average body habitus Orientation/consciousness: patient oriented x3 HENMT: Head: Yes normal to inspection Ears: hearing grossly normal bilaterally Eyes: General: appearance normal, both eyes and all related structures Visual Ramsey: normal visual ramsey by confrontation Chest: Chest palpation & inspection: normal inspection of the chest Resp: Effort & Inspection: normal respiratory effort Cardio: Jugular venous distension: no JVD : General: Yes no CVA tenderness Back/Spine/Pelvis: Back: no CVA tenderness 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 No erythema, induration, open area or discharge. General skin exam: no rashes or lesions noted Neuro: General: patient oriented x3 Extrem: General: Yes normal to inspection Course Course Course Narrative: Findings anticipate after IM injection. Site without localized infection. No significant pain discomfort. Will discharge home with compress therapy, Tylenol or NSAID for pain discomfort. Advised to return. Discharge Plan Discharge Clinical Impression: Normal injection site Patient Disposition: Home, Self-Care Instructions: How to Give an Intramuscular Injection (DC) Additional Instructions: this slight tenderness /discomfort is normal after intramuscular injection. Apply warm compresses Tylenol or ibuprofen for pain discomfort Return if any redness, swelling, fever otherwise follow up with primary care doctor Thank you Prescriptions: No Action nicotine (polacrilex) 2 mg Gum 2 mg buccal Q2H PRN (Reason: Nicotine Cravings) Qty: 20 RF: 0 hydroxyzine HCl 25 mg Tablet 25 mg PO Q8H PRN (Reason: Anxiety) Qty: 4 RF: 0 Referrals: Courtney Todd MD [Primary Care Provider] - 1 week Interventions: ED Discharge Assessment Last Done: 06/08/20 14:57 Discharge Date/Time: 06/08/20 14:57
== END 2020-06-08 14:57 | disposition home or self-care (01) ==
PROVIDERS: Emergency Provider Emergency Medicine; PCP Internal Medicine
DX: Z71.1 Person with feared health complaint in whom no diagnosis is made (principal); F41.9 Anxiety disorder, unspecified; F10.20 Alcohol dependence, uncomplicated
CPT/HCPCS: 99283

== ENCOUNTER 2020-09-19 15:58 | Outpatient (REF) | payer OTHER, SELFPAY | END 2020-09-19 15:59 | disposition home or self-care (01) | LOC: HO.LAB 15:58 | PROVIDERS: Visit Provider Internal Medicine | DX: Z20.822 Contact with and (suspected) exposure to COVID-19 (principal) | CPT/HCPCS: 36415; C9803; U0003 ==

== ENCOUNTER 2020-11-11 15:43 | Outpatient (REF) | payer OTHER, SELFPAY | END 2020-11-11 15:44 | disposition home or self-care (01) | LOC: HO.LAB 15:43 | PROVIDERS: Visit Provider Internal Medicine | DX: Z20.822 Contact with and (suspected) exposure to COVID-19 (principal) | CPT/HCPCS: 36415; C9803; U0003; U0005 ==

== ENCOUNTER 2020-12-16 08:23 | Outpatient (REF) | payer OTHER, SELFPAY ==
[2020-12-16 11:44] LABS: ~HepC Num1 0.09 S/CO (0.00-0.79); ~Hepatitis C Antibody Nonreactive (Nonreactive)
[2020-12-16 11:53] LABS: Syphilis Screen Nonreactive (Nonreactive)
[2020-12-16 12:17] LABS: HBc Num1 0.11 S/CO (0.00-0.79); HIV AB/AG Nonreactive (Nonreactive); HIV Num 1 0.16 S/CO (0.00-0.99); Hepatitis B Core Antibody Nonreactive (Nonreactive)
[2020-12-16 15:03] LABS: CT PCR NOT DETECTED (Not Detect.); NG PCR NOT DETECTED (Not Detect.)
[2020-12-17 08:51] LABS: BV Int Neg Control Negative (Negative); BV Int Pos Control Positive (Positive)
[2020-12-18 15:46] LABS: HPV mRNA E6/E7 rflx Not Detected (Not Detected)
== END 2020-12-16 08:24 | disposition home or self-care (01) ==
LOC: HO.LAB 08:23
PROVIDERS: PCP Internal Medicine; Visit Provider Advanced Practice Midwife
DX: Z01.419 Encounter for gynecological examination (general) (routine) without abnormal findings (principal); Z11.51 Encounter for screening for human papillomavirus (HPV); Z11.3 Encounter for screening for infections with a predominantly sexual mode of transmission; Z20.2 Contact with and (suspected) exposure to infections with a predominantly sexual mode of transmission; N89.8 Other specified noninflammatory disorders of vagina
CPT/HCPCS: 36415; 86704; 86780; 86803; 87389; 87480; 87491; 87510; 87591; 87624; 87660; 88142

== ENCOUNTER 2021-01-12 09:11 | Emergency (ER) | payer OTHER, SELFPAY ==
--- NOTE | ~2021-01-12 | CT_ITS ---
EXAMINATION: CT ABDOMEN AND PELVIS WITH CONTRAST CLINICAL INFORMATION: Nausea and emesis. White count 15,000 COMPARISON: None TECHNIQUE: Multidetector volumetric images were obtained from the superior aspect of the liver through the pubic symphysis following administration 85 mL of Omnipaque 350 intravenous contrast. Sagittal and coronal reformatted images were obtained on the technologist's workstation. Oral contrast: No This CT examination was performed using dose optimization techniques as appropriate, variously including the following: *Automated exposure control *Adjustment of mA and/or kV according to patient size (this includes techniques or standardized protocols for targeted exams where dose is matched to indication/reason for exam; i.e. extremities or head) *Use of iterative reconstruction technique DLP: 441 mGy-cm FINDINGS: LUNG BASES: The visualized lung bases are unremarkable. LIVER, GALLBLADDER, AND BILIARY TREE: The liver is normal in size, shape, and attenuation. There is a irregular density adjacent the ligament teres likely focal fatty infiltration. No additional lesions seen. There is no intrahepatic ductal dilatation. The gallbladder is unremarkable with no evidence of radiopaque gallstones, gallbladder wall thickening, or obvious pericholecystic inflammatory changes. PANCREAS: Unremarkable. SPLEEN: Unremarkable. ADRENAL GLANDS: Unremarkable. KIDNEYS AND URETERS: The kidneys are normal in size, shape, and attenuation. No hydronephrosis, hydroureter, or calculi seen. No perinephric stranding. BLADDER: Unremarkable. GASTROINTESTINAL TRACT: There is scattered stool and gas seen throughout the colon without any significant distention. The small bowel loops are normal caliber. Appendix is normal caliber. ABDOMINAL WALL: No significant hernia is appreciated. LYMPH NODES: Normal. VASCULAR: Unremarkable. PELVIC VISCERA: There is a 3.9 x 3.3 x 3.9 cm hypodense oval lesion in the right adnexa posterior to right uterus measuring 20 Hounsfield units likely complex cyst. There is no gas within suspect any abscess. There is no free fluid. No abnormal pelvic or inguinal lymph nodes. The uterus is anteverted. OSSEOUS STRUCTURES: Lytic or sclerotic process seen. CT/CT abdomen pelvis w con IMPRESSION: No acute intra-abdominal process seen. Mild constipation. Right adnexal complex cyst measuring 20 Hounsfield units posterior to right uterus.
[2021-01-12 12:27] VITALS: BP 126/85; PULSE 100; RESP 20; TEMP 37.2; O2SAT 98; BMI 28.3
--- NOTE | 2021-01-12 12:34 | ED_ITS ---
HPI - Nausea/Vomiting/Diarrhea General Chief complaint: Nausea/Vomiting/Diarrhea Stated complaint: dehydrated Time Seen by Provider: 01/12/21 11:48 Related Data Home Medications Medication Instructions Recorded Confirmed etonogestrel 68 mg subdermal SUBDERMAL 12/16/20 implant Previous Rx's Medication Instructions Recorded hydroxyzine HCl 25 mg PO Q8H PRN #4 tab 06/03/20 nicotine (polacrilex) 2 mg BUCCAL Q2H PRN #20 ea 06/03/20 metronidazole 500 mg tablet 500 mg PO BID 7 Days #14 tab 12/17/20 Allergies Allergy/AdvReac Type Severity Reaction Status Date / Time No Known Allergies Allergy Unknown Verified 01/12/21 12:26 [facility] Past Medical History Medical History Anxiety and depression EtOH dependence Surgical History Hx of dilation and curettage Family History Family History Maternal Aunt History of breast cancer Social History Social History Smoking Status: Current every day smoker Substance Use Type: Marijuana Advance Directives: Yes Advance Directives Information Provided: Yes Advance Directives on File: No Patient : No Physical Exam Vital Signs: Vital Signs: Last Vital Signs Temp 98.9 F 01/12/21 12:27 Pulse 100 01/12/21 12:27 Resp 20 01/12/21 12:27 BP 126/85 01/12/21 12:27 Pulse Ox 98 01/12/21 12:27 Body Mass Index 28.3 Course Course Course Narrative: Rapid medical examination: 35 y/o female with no medical history presents to the ER with multiple epsidoes of vomiting today, 15+ associated with nausea and abdominal soreness due to vomiting. She thinks she is dehydrated and is requesting IVF. Denies chance of . Afebrile, vitally stable. Abd mild tenderness throughout. Non-toxic appearing. Basic labs ordered. Given SL Zofran. Plan per provider in the Main ED. Discharge Plan Discharge Prescriptions: No Action metronidazole [Flagyl] 500 mg tablet 500 mg PO BID 7 Days Qty: 14 RF: 0 nicotine (polacrilex) 2 mg Gum 2 mg buccal Q2H PRN (Reason: Nicotine Cravings) Qty: 20 RF: 0 hydroxyzine HCl 25 mg Tablet 25 mg PO Q8H PRN (Reason: Anxiety) Qty: 4 RF: 0 Nexplanon 68 mg implant subdermal RF: 0
[2021-01-12 12:56] LABS: MANUAL DIFF FLAG NO
[2021-01-12 12:58] LABS: Basophils Absolute Auto 0.1 X10*3/uL (0.0-0.2); Basophils Percent Auto 0.5 % (0-2); Eosinophils Percent Auto 0.1 % (0-4); Hematocrit 41.1 % (37-47); Hemoglobin 14.4 g/dl (12.0-16.0); Imm Gran Abs Auto 0.04 X10*3/uL (0.00-0.03); Imm Gran Pct Auto 0.3 % (0.0-0.4); Lymphocytes Absolute Auto 1.5 X10*3/uL (1.2-4.9); Lymphocytes Percent Auto 9.9 % (20-40); Mean Corpuscular Hemoglobin 33.1 pg (27.0-33.0); Mean Corpuscular Volume 94.5 fL (80-98); Mean Platelet Volume 8.7 fL (9.4-12.3); Monocytes Absolute Auto 0.5 X10*3/uL (0.1-1.2); Monocytes Percent Auto 3.2 % (2-11); Neutrophils Absolute Auto 12.9 X10*3/uL (2.0-8.3); Platelet Count 443 X10*3/uL (160-400); Red Blood Count 4.35 X10*6/uL (4.20-5.50); Red Cell Distribution Width 11.9 % (11.0-16.0)
[2021-01-12 13:05] LABS: Glucose Urine UA NEG (NEG); Leukocyte Esterase Urine NEG (NEG); Nitrite Urine NEG (NEG); Specific Gravity - Urine >= 1.030 (1.005-1.025); Urine Blood 2+ (NEG); Urine Ketones 15 MG/DL (NEG); Urine Protein 1+ MG/DL (NEG-TRACE)
[2021-01-12 13:06] LABS: Appearance Urine HAZY; Color Urine DARK YELLOW
[2021-01-12 13:07] LABS: UPreg QC Valid YES; Urine Pregnancy NEGATIVE (NEGATIVE)
[2021-01-12 13:21] LABS: Alanine Aminotransferase 33 U/L (0-31); Albumin Level 4.7 g/dL (3.5-5.0); Alkaline Phosphatase 70 U/L (39-117); Anion Gap 16 (12-20); Aspartate Amino Transferase 52 U/L (5-31); Bilirubin Total 1.5 mg/dL (0.0-1.0); Blood Urea Nitrogen 14 mg/dL (9-16); Carbon Dioxide 21 mmol/L (22-29); Chloride 105 mmol/L (96-108); Estimated Glomerular Filt Rate > 60; Glucose Random 124 mg/dL (60-115); Potassium 3.7 mmol/L (3.3-5.1); Sodium 138 mmol/L (135-145); Total Protein 8.3 g/dL (6.5-8.0)
[2021-01-12 13:29] LABS: Bacteria Urine TRACE /LPF; Hyaline Casts Urine 0-2 /LPF; Mucus Urine 3+ /LPF; Squamous Epithelial Cell Urine 1+ /LPF; WBC Urine 0-2 /HPF (0-4)
[2021-01-12 13:30] LABS: Amorphous Sediment Urine 1+ /LPF
[2021-01-12 14:01] LABS: Magnesium 1.9 mg/dL (1.6-2.6)
[2021-01-12 14:10] LABS: COVID-19 Test Negative (Negative)
[2021-01-12] MEDS: 0.9 % Sodium Chloride 1,000 ML 999 ML IV ×2 (14:45→14:46)
[2021-01-12 14:48] VITALS: BP 126/75; PULSE 93; RESP 16; TEMP 37.4; O2SAT 100
[2021-01-12] MEDS: iohexoL 350 MG/ML 100 ML INFUS..BTL IV (15:29)
--- NOTE | 2021-01-12 16:50 | ED_ITS ---
HPI - Nausea/Vomiting/Diarrhea General Chief complaint: Nausea/Vomiting/Diarrhea Stated complaint: dehydrated Time Seen by Provider: 01/12/21 11:48 Source: patient Mode of arrival: ambulatory Limitations: no limitations History of Present Illness HPI Narrative: Patient presents to ED for dehydration. Patient states drinking alcohol last night but not eating much food or drinking fluids. Patient denies any abdominal pain, dysuria, hematuria, flank pain, chest pain, shortness of breath, falling to the ground, hitting head, neck pain, shortness of breath. Associated nausea: Yes Related Data Home Medications Medication Instructions Recorded Confirmed etonogestrel 68 mg subdermal SUBDERMAL 12/16/20 implant Previous Rx's Medication Instructions Recorded hydroxyzine HCl 25 mg PO Q8H PRN #4 tab 06/03/20 nicotine (polacrilex) 2 mg BUCCAL Q2H PRN #20 ea 06/03/20 metronidazole 500 mg tablet 500 mg PO BID 7 Days #14 tab 12/17/20 Allergies Allergy/AdvReac Type Severity Reaction Status Date / Time No Known Allergies Allergy Unknown Verified 01/12/21 12:26 Review of Systems Review of Systems: Yes all other systems are reviewed and are negative Constitutional: Constitutional: Reports as per HPI and Reports no additional constitutional complaints Eyes: Eyes: Reports as per HPI and Reports no additional eye complaints ENT: Reports system reviewed and no additional complaints, except as documented and Reports as per HPI Cardiovascular: Cardiovascular: Reports as per HPI and Reports no additional cardiovascular complaints Respiratory: Respiratory: Reports as per HPI and Reports no additional respiratory complaints Gastrointestinal: Gastrointestinal: Reports as per HPI, Reports no additional gastrointestinal complaints, Reports nausea and Reports vomiting Genitourinary: Genitourinary: Reports no additional female genitourinary complaints and Reports as per HPI Musculoskeletal: Musculoskeletal: Reports no additional musculoskeletal complaints and Reports as per HPI Neurologic: Reports system reviewed and no additional complaints, except as documented and Reports as per HPI Psychiatric: Psychiatric: Reports no additional psychiatric complaints and Reports as per HPI PMFSH Past Medical History Medical History Anxiety and depression EtOH dependence Surgical History Hx of dilation and curettage Family History Family History Maternal Aunt History of breast cancer Social History Social History Alcohol intake: current Alcohol intake frequency: 0-2 drinks per day Alcohol type: beer, wine and hard liquor Smoking Status: Current every day smoker Smoked in Last 30 Days: Yes Use of substances other than those prescribed or required for medical reasons: Yes Substance Use Type: Crack/Cocaine and Marijuana Substance Use Frequency: Socially Last Used Substance: Days (ago) Any prior treatment program specific to substance use: No Advance Directives: Yes Advance Directives Information Provided: Yes Advance Directives on File: No Patient : No Physical Exam Vital Signs: Vital Signs: Last Vital Signs Temp 99.3 F 01/12/21 14:48 Pulse 93 01/12/21 14:48 Resp 16 01/12/21 14:48 BP 126/75 01/12/21 14:48 Pulse Ox 100 01/12/21 14:48 Body Mass Index 28.3 Const: General: cooperative, healthy appearing, comfortable, no acute distress, well developed, alert, awake and Physically active Orientation/consciousness: patient oriented x3 HENMT: Head: Yes normal to inspection, Yes No palpable skull fracture present, Yes normocephalic, Yes atraumatic and No abrasion Eyes: General: appearance normal, both eyes and all related structures Neck: Neck: Yes normal visual inspection, Yes full ROM, Yes no lymphadenopathy, Yes no meningeal signs, Yes trachea midline, Yes supple and No tender Chest: Chest palpation & inspection: normal inspection of the chest and normal palpation of entire chest wall Resp: Effort & Inspection: normal respiratory effort and able to speak in complete sentences Auscultation: clear to auscultation bilaterally Cardio: Jugular venous distension: no JVD Heart sounds: S1 normal heart sound present and S2 normal heart sound present GI: Inspection: Yes normal to inspection and No abdominal wall ecchymosis Palpation (GI): Soft to palpation, not firm, nontender, no guarding and not rigid : General: No CVA tenderness Back/Spine/Pelvis: Back: no CVA tenderness, No CVA tenderness and No back tenderness Skin: General skin exam: no rashes or lesions noted and elasticity normal Neuro: General: patient oriented x3, no meningeal signs and CN's II-XI intact bilaterally Cranial nerves: Yes CN's II-XII intact bilaterally Extrem: General: Yes normal to inspection and Yes full ROM Psych: Appearance: grossly normal, well kempt and not disheveled Course Course Course Narrative: Patient will have labs drawn and given IV fluids CPK will be sent and magnesium. COVID swab will be sent. Reevaluation(s) Reevaluation #1: Blood cell count 15,000 although no abdominal tenderness was sent for CT scan to make sure there is no abdominal etiology. Electrolytes are normal. UA negative for UTI. negative. COVID swab negative. Reevaluation #2: Abdominal CT scan came back normal. CPK normal. Patient is safe for discharge. MDM - Nausea/Vomiting/Diarrhea MDM Narrative Medical decision making narrative: Dehydration Lab Data Result diagrams: 01/12/21 12:52 01/12/21 12:52 Labs: Lab Results 01/12/21 01/12/21 01/12/21 Range/Units 12:52 12:52 12:52 WBC 15.0 H (4.8-10.8) X10*3/uL RBC 4.35 D (4.20-5.50) X10*6/uL Hgb 14.4 D (12.0-16.0) g/dl Hct 41.1 D (37-47) % MCV 94.5 (80-98) fL MCH 33.1 H (27.0-33.0) pg MCHC 35.0 (31.0-35.0) g/dl RDW 11.9 (11.0-16.0) % Plt Count 443 H D (160-400) X10*3/uL MPV 8.7 L (9.4-12.3) fL Immature Gran % (Auto) 0.3 (0.0-0.4) % Neut % (Auto) 86.0 H (45-73) % Lymph % (Auto) 9.9 L (20-40) % [place] % (Auto) 3.2 (2-11) % Eos % (Auto) 0.1 (0-4) % Baso % (Auto) 0.5 (0-2) % Lymph # (Auto) 1.5 (1.2-4.9) X10*3/uL [place] # (Auto) 0.5 (0.1-1.2) X10*3/uL Eos # (Auto) 0.0 (0.0-0.4) X10*3/uL Baso # (Auto) 0.1 (0.0-0.2) X10*3/uL Abs Immat Gran (auto) 0.04 H (0.00-0.03) X10*3/uL Absolute Neuts (auto) 12.9 H (2.0-8.3) X10*3/uL Absolute Nucleated RBC 0.000 (0.0-0.012) X10*3/uL Nucleated RBC % (auto) 0.0 (0.0-0.2) /100WBC Sodium 138 (135-145) mmol/L Potassium 3.7 (3.3-5.1) mmol/L Chloride 105 (96-108) mmol/L Carbon Dioxide 21 L (22-29) mmol/L Anion Gap 16 (12-20) BUN 14 (9-16) mg/dL Creatinine 0.85 (0.5-1.4) mg/dL Estim Creat Clear Calc 83.0 Estimated GFR > 60 Random Glucose 124 H (60-115) mg/dL Calcium 10.0 D (8.4-10.2) mg/dL Magnesium 1.9 (1.6-2.6) mg/dL Total Bilirubin 1.5 H (0.0-1.0) mg/dL AST 52 H (5-31) U/L ALT 33 H (0-31) U/L Alkaline Phosphatase 70 (39-117) U/L Total Creatine Kinase 105 (26-140) U/L Total Protein 8.3 H D (6.5-8.0) g/dL Albumin 4.7 (3.5-5.0) g/dL Urine Color DARK YELLOW Urine Appearance HAZY Urine pH 6.0 (5.0-8.0) Ur Specific [place] >= 1.030 H (1.005-1.025) Urine Protein 1+ H (NEG-TRACE) MG/DL Urine Glucose (UA) NEG (NEG) MG/DL Urine Ketones 15 (NEG) MG/DL Urine Blood 2+ H (NEG) Urine Nitrite NEG (NEG) Ur Leukocyte Esterase NEG (NEG) Urine RBC 1-4 (0) /HPF Urine WBC 0-2 (0-4) /HPF Ur Squamous Epith Cells 1+ /LPF Amorphous Sediment 1+ /LPF Urine Bacteria TRACE /LPF Hyaline Casts 0-2 /LPF Urine Mucus 3+ /LPF Urine Test (NEGATIVE) COVID-19 ([place]) (Negative) COVID-19 Clin Com 01/12/21 01/12/21 Range/Units 12:52 13:48 WBC (4.8-10.8) X10*3/uL RBC (4.20-5.50) X10*6/uL Hgb (12.0-16.0) g/dl Hct (37-47) % MCV (80-98) fL MCH (27.0-33.0) pg MCHC (31.0-35.0) g/dl RDW (11.0-16.0) % Plt Count (160-400) X10*3/uL MPV (9.4-12.3) fL Immature Gran % (Auto) (0.0-0.4) % Neut % (Auto) (45-73) % Lymph % (Auto) (20-40) % [place] % (Auto) (2-11) % Eos % (Auto) (0-4) % Baso % (Auto) (0-2) % Lymph # (Auto) (1.2-4.9) X10*3/uL [place] # (Auto) (0.1-1.2) X10*3/uL Eos # (Auto) (0.0-0.4) X10*3/uL Baso # (Auto) (0.0-0.2) X10*3/uL Abs Immat Gran (auto) (0.00-0.03) X10*3/uL Absolute Neuts (auto) (2.0-8.3) X10*3/uL Absolute Nucleated RBC (0.0-0.012) X10*3/uL Nucleated RBC % (auto) (0.0-0.2) /100WBC Sodium (135-145) mmol/L Potassium (3.3-5.1) mmol/L Chloride (96-108) mmol/L Carbon Dioxide (22-29) mmol/L Anion Gap (12-20) BUN (9-16) mg/dL Creatinine (0.5-1.4) mg/dL Estim Creat Clear Calc Estimated GFR Random Glucose (60-115) mg/dL Calcium (8.4-10.2) mg/dL Magnesium (1.6-2.6) mg/dL Total Bilirubin (0.0-1.0) mg/dL AST (5-31) U/L ALT (0-31) U/L Alkaline Phosphatase (39-117) U/L Total Creatine Kinase (26-140) U/L Total Protein (6.5-8.0) g/dL Albumin (3.5-5.0) g/dL Urine Color Urine Appearance Urine pH (5.0-8.0) Ur Specific [place] (1.005-1.025) Urine Protein (NEG-TRACE) MG/DL Urine Glucose (UA) (NEG) MG/DL Urine Ketones (NEG) MG/DL Urine Blood (NEG) Urine Nitrite (NEG) Ur Leukocyte Esterase (NEG) Urine RBC (0) /HPF Urine WBC (0-4) /HPF Ur Squamous Epith Cells /LPF Amorphous Sediment /LPF Urine Bacteria /LPF Hyaline Casts /LPF Urine Mucus /LPF Urine Test NEGATIVE (NEGATIVE) COVID-19 ([place]) Negative (Negative) COVID-19 Clin Com See Note Discharge Plan Discharge Clinical Impression: Acute dehydration Patient Disposition: Home, Self-Care Instructions: Dehydration (ED) Additional Instructions: Return to the ED immediately for any abdominal pain, nausea, vomiting, fever, chills, weakness, dizziness, headache, slurred speech, dysuria, hematuria, chest pain, shortness of breath, or any other concerning symptoms Prescriptions: No Action metronidazole [Flagyl] 500 mg tablet 500 mg PO BID 7 Days Qty: 14 RF: 0 nicotine (polacrilex) 2 mg Gum 2 mg buccal Q2H PRN (Reason: Nicotine Cravings) Qty: 20 RF: 0 hydroxyzine HCl 25 mg Tablet 25 mg PO Q8H PRN (Reason: Anxiety) Qty: 4 RF: 0 Nexplanon 68 mg implant subdermal RF: 0 Referrals: Courtney Todd MD [Primary Care Provider] - 2 days (Dehydration) Stand Alone Forms: Work/School Release Print Language: Frisian
== END 2021-01-12 17:13 | disposition home or self-care (01) ==
PROVIDERS: Physician Assistant; Emergency Provider Emergency Medicine; PCP Internal Medicine
DX: E86.0 Dehydration (principal); F14.90 Cocaine use, unspecified, uncomplicated; F17.200 Nicotine dependence, unspecified, uncomplicated; F12.90 Cannabis use, unspecified, uncomplicated; Z71.6 Tobacco abuse counseling; Z79.899 Other long term (current) drug therapy; Z20.822 Contact with and (suspected) exposure to COVID-19
CPT/HCPCS: 36415; 74177; 80053; 81001; 81025; 82550; 83735; 85025; 87635; 96360; 99284; Q9967

== ENCOUNTER 2021-07-01 07:48 | Outpatient (REF) | payer OTHER, SELFPAY ==
[2021-07-01 08:17] LABS: COVID-19 Test Negative (Negative)
== END 2021-07-01 07:49 | disposition home or self-care (01) ==
LOC: HO.LAB 07:48
PROVIDERS: PCP Internal Medicine; Visit Provider Internal Medicine
DX: Z20.822 Contact with and (suspected) exposure to COVID-19 (principal)
CPT/HCPCS: 36415; 87635; C9803

== ENCOUNTER 2021-09-04 09:19 | Outpatient (REF) | payer OTHER, SELFPAY ==
[2021-09-04 10:48] LABS: Binax Internal Control QC Valid; Binax Now Covid-19 Ag Positive (Negative)
== END 2021-09-04 09:20 | disposition home or self-care (01) ==
LOC: HO.LAB 09:19
PROVIDERS: Visit Provider Internal Medicine
DX: Z20.822 Contact with and (suspected) exposure to COVID-19 (principal)
CPT/HCPCS: C9803

== ENCOUNTER 2021-09-15 10:26 | Emergency (ER) | payer OTHER, SELFPAY ==
--- NOTE | ~2021-09-15 | XR_ITS ---
EXAMINATION: XR CHEST CLINICAL INFORMATION: Bilateral lung pain COMPARISON: Previous chest x-ray May 2020 TECHNIQUE: Frontal view of the chest was obtained. FINDINGS: No significant abnormality is noted involving the heart, lungs, mediastinum, bony thorax or soft tissues. XR/XR chest 1V IMPRESSION: Unremarkable examination.
--- NOTE | ~2021-09-15 | CT_ITS ---
EXAMINATION: CT ABDOMEN AND PELVIS WITH CONTRAST CLINICAL INFORMATION: Pelvic mass COMPARISON: Previous CT of the abdomen and pelvis December 2020 TECHNIQUE: Multidetector volumetric images were obtained from the superior aspect of the liver through the pubic symphysis following administration 85 mL of Omnipaque 350 intravenous contrast. Sagittal and coronal reformatted images were obtained on the technologist's workstation. Oral contrast: Yes This CT examination was performed using dose optimization techniques as appropriate, variously including the following: *Automated exposure control *Adjustment of mA and/or kV according to patient size (this includes techniques or standardized protocols for targeted exams where dose is matched to indication/reason for exam; i.e. extremities or head) *Use of iterative reconstruction technique DLP: 387 mGy-cm FINDINGS: LUNG BASES: There are scattered small semisolid or groundglass attenuation and peribronchial nodular opacities seen at the lung bases. The largest measures 6 x 8 mm in the left lower lobe axial image 46 series.. There is a 4 mm more solid-appearing right lower lobe nodule axial image 17 series 4. Airways disease favored.. LIVER, GALLBLADDER, AND BILIARY TREE: The liver is low in attenuation suggestive of fatty infiltration. No focal hepatic lesion or biliary ductal dilatation is present. The gallbladder is unremarkable with no evidence of radiopaque gallstones, gallbladder wall thickening, or obvious pericholecystic inflammatory changes. PANCREAS: Unremarkable. SPLEEN: Unremarkable. ADRENAL GLANDS: Unremarkable. KIDNEYS AND URETERS: The kidneys are normal in size, shape, and attenuation. There is a small 1 cm low-attenuation lesion in the right kidney suggestive of a cyst. There are several small low-attenuation lesions in the upper pole of the left kidney, largest measuring 5 mm. Difficult to characterize due to small size probably represent cysts as well. No imaging follow-up is indicated. No hydronephrosis, hydroureter, or calculi seen. No perinephric stranding. BLADDER: Unremarkable. GASTROINTESTINAL TRACT: The small and large bowel are unremarkable. The appendix is unremarkable. ABDOMINAL WALL: No significant hernia is appreciated. LYMPH NODES: Normal. VASCULAR: Unremarkable. PELVIC VISCERA: There is a 1.8 x 2.4 cm right ovarian cyst. Uterus and adnexa are otherwise unremarkable. OSSEOUS STRUCTURES: Unremarkable. CT/CT abdomen pelvis w con IMPRESSION: Small semisolid or groundglass attenuation peribronchial nodular opacities at the lung bases. Peribronchial distribution favors airways disease over Covid infection. Fatty liver. Probable renal cysts. 1.8 x 2.4 cm right ovarian cyst. Fleischner guidelines were followed.
[2021-09-15 10:36] VITALS: BP 124/77; PULSE 102; RESP 19; TEMP 37.4; O2SAT 95; BMI 26.2
--- NOTE | 2021-09-15 11:15 | ED.GENADULT ---
HPI - General Adult General Chief complaint: General Medical Stated complaint: Hemorrhoid? Time Seen by Provider: 09/15/21 11:14 Source: patient Mode of arrival: ambulatory Limitations: no limitations History of Present Illness HPI narrative: Patient is a 35 year old female presenting to the emergency department today with a vaginal or rectal mass. Patient states that she has been having increased pain in her lower vaginal area and in her rectum. Patient states that she has a history of hemorrhoids however, she states this does not feel like hemorrhoids. Patient states that she noticed the mass a few days ago and it seems to be causing her more pain the longer it goes on. Patient states that she has been drinking to numb the pain some. Patient states that on September 04, she was diagnosed with COVID-19 infection. Patient denies any dizziness, vaginal bleeding, vaginal discharge, lightheadedness, abdominal pain, nausea, vomiting, fever, chills, blurry vision, double vision, loss of vision, chest pain, difficulty breathing, shortness of breath, back pain, night sweats, pain with urination, increased urinary frequency, increased urinary urgency, blood in her urine or stool, syncope or a near syncopal episode, recent trauma or falls, bowel incontinence, bladder incontinence, bowel retention, bladder retention, or any other complaints at this time. Onset (ago): day(s) Location: pelvis Radiation: non-radiation Severity: mild Quality: dull Pain Consistency: constant Relieving factors: none Exacerbating factors: none Associated symptoms: denies other symptoms Related Data Home Medications Medication Instructions Recorded Confirmed etonogestrel 68 mg subdermal SUBDERMAL 12/16/20 implant (Nexplanon) Previous Rx's Medication Instructions Recorded hydroxyzine HCl 25 mg tablet 25 mg PO Q8H PRN #4 tab 06/03/20 nicotine (polacrilex) 2 mg gum 2 mg BUCCAL Q2H PRN #20 ea 06/03/20 metronidazole 500 mg tablet 500 mg PO BID 7 Days #14 tab 12/17/20 (Flagyl) Allergies Allergy/AdvReac Type Severity Reaction Status Date / Time No Known Allergies Allergy Unknown Verified 01/12/21 12:26 Review of Systems Constitutional: Constitutional: Reports no additional constitutional complaints, Denies chills, Denies fever(s) and Denies night sweats Eyes: Eyes: Reports no additional eye complaints, Denies blurry vision, Denies change in vision, Denies diplopia, Denies eye discharge, Denies loss of vision and Denies eye pain ENT: Denies dizziness Cardiovascular: Cardiovascular: Reports no additional cardiovascular complaints, Denies chest pain, Denies lightheadedness, Denies Loss of Consciousness and Denies dyspnea Respiratory: Respiratory: Reports no additional respiratory complaints and Denies dyspnea Gastrointestinal: Gastrointestinal: Reports no additional gastrointestinal complaints, Denies abdominal pain, Denies melena, Denies hematochezia, Denies change in bowel habits and Denies change in stool character Genitourinary: Genitourinary: Denies hematuria, Denies urinary frequency, Denies dysuria, Denies urinary incontinence, Denies urinary hesitancy and Denies urinary urgency Comments: vaginal mass Musculoskeletal: Musculoskeletal: Reports no additional musculoskeletal complaints, Denies numbness and Denies tingling Neurologic: Denies dizziness, Denies loss of vision, Denies numbness and Denies tingling Psychiatric: Psychiatric: Reports no additional psychiatric complaints Endocrine: Endocrine: Reports no additional endocrine complaints Hematologic/Lymphatic: Hematologic/Lymphatic: Reports no additional hematologic/lymphatic complaints Allergic/Immunologic: Allergic/Immunologic: Reports no additional allergic/immunologic complaints [facility] Past Medical History Attestation statement: The following information was validated with the patient. Medical History Anxiety and depression EtOH dependence Surgical History Hx of dilation and curettage Family History Family History Maternal Aunt History of breast cancer Social History Social History Alcohol intake: current Alcohol intake frequency: 0-2 drinks per day Alcohol type: beer, wine and hard liquor Substance Use Type: Crack/Cocaine and Marijuana Advance Directives: No Advance Directives Information Provided: No Patient : No Physical Exam Vital Signs: Vital Signs: Last Vital Signs Temp 99.4 F 09/15/21 10:36 Pulse 89 09/15/21 15:35 Resp 16 09/15/21 15:35 BP 108/74 09/15/21 15:35 Pulse Ox 96 09/15/21 15:35 BMI result Body Mass Index 26.2 Const: General: cooperative and healthy appearing Nutritional Appearance: well nourished Orientation/consciousness: patient oriented x3 Limitations: no limitations HENMT: Head: Yes normal to inspection and Yes atraumatic Ears: hearing grossly normal bilaterally and external ears normal General nose exam: Normal external nose present, no nasal discharge noted and no epistaxis Face and sinus: Yes normal facial exam, No abrasion and No laceration Mouth: Normal oral and palatal mucosa present, no drooling and no muffled voice Eyes: General: appearance normal, both eyes and all related structures Periorbital: periorbital findings normal Eyelids: Yes eyelids normal Conjunctivae: conjunctivae normal Pupils: Equal, round and reactive pupils present EOM: EOMs intact bilaterally Neck: Neck: Yes normal visual inspection, Yes full ROM and Yes no lymphadenopathy Chest: Chest palpation & inspection: normal inspection of the chest Resp: Effort & Inspection: normal respiratory effort and able to speak in complete sentences Auscultation: clear to auscultation bilaterally GI: Inspection: Yes normal to inspection Palpation (GI): Soft to palpation, not firm and nontender : External Female Exam: normal external appearance Speculum Exam - Vagina: normal appearance of the vagina Neuro: General: patient oriented x3 and moves all extremities Cranial nerves: Yes Equal, round and reactive pupils present Cognition (Neuro): normal cognition Motor exam (neuro): 5/5 motor strength present throughout Sensory Exam: Normal double simultaneous stimulation for sensation Coordination: [id number] test normal Extrem: General: Yes normal to inspection, Yes full ROM and Yes capillary refill normal Psych: Appearance: grossly normal Mental Status: mental status grossly normal Affect: normal affect Attitude: cooperative Thought process: Normal thought process present Thought content: Normal thought content present Insight: Good insight present (Psych) Course Course Course Narrative: Ct abdomen pelvis with IV contrast showed: Small semisolid or groundglass attenuation peribronchial nodular opacities at the lung bases. Peribronchial distribution favors airways disease over COVID infection. Fatty liver. Probable renal cysts. 1.8 x 2.4 cm right ovarian cyst. Patient's chest XR was negative for any acute process. Medical Decision Making MDM Narrative Medical decision making narrative: Patient is a 35 year old female presenting to the emergency department today with a possible vaginal mass. Patient's physical exam was unremarkable. Patient's pelvic exam was performed with RN at bed side as mortgage coordinator. When performing the pelvic exam, the patient pointed to the area where she suspected a mass. When I palpated, I appreciated some soft tissue swelling but it felt like normal tissue. Patient's blood work showed an elevated lactic acid of 2.5 but was otherwise unremarkable. Patient's urine showed no acute process. Patient's abdominal CT showed ovarian cysts as well as other cysts throughout the abdominal cavity and groundglass opacities of the lungs. Patient's chest XR was negative for any acute process.. I explained my physical exam findings as well as all test results to the patient. I answered all questions asked by the patient. Patient received IV Morphine, Zofran, and fluids which she stated helped her symptoms significantly. I stressed the importance of the patient taking her medication as prescribed. I stressed the importance of the patient following up with her primary care provider and her OBGYN provider. I stressed the importance of the patient returning to the emergency department immediately if her symptoms were to worsen or if she were to develop any dizziness, shortness of breath, difficulty breathing, chest pain, blurry vision, loss of vision, nausea, vomiting, abdominal pain, fever, chills, back pain, or any other complaints. Patient verbalized agreement and understanding with this treatment plan and discharge. Differential Diagnosis Differential Diagnosis: vaginal mass, rectal mass, medical examination Medical Records Medical records reviewed: Yes I reviewed the patient's medical records. Lab Data Lab results reviewed: Yes I reviewed the patient's lab results. Result diagrams: 09/15/21 12:32 09/15/21 12:19 Labs: Lab Results 09/15/21 09/15/21 09/15/21 Range/Units 11:57 11:57 12:19 WBC (4.8-10.8) X10*3/uL RBC (4.20-5.50) X10*6/uL Hgb (12.0-16.0) g/dl Hct (37.0-47.0) % MCV (80.0-98.0) fL MCH (27.0-33.0) pg MCHC (31.0-35.0) g/dl RDW (11.0-16.0) % Plt Count (160-400) X10*3/uL MPV (9.4-12.3) fL Immature Gran % (Auto) (0.0-0.4) % Neut % (Auto) (45-73) % Lymph % (Auto) (20-40) % [place] % (Auto) (2-11) % Eos % (Auto) (0-4) % Baso % (Auto) (0-2) % Lymph # (Auto) (1.2-4.9) X10*3/uL [place] # (Auto) (0.1-1.2) X10*3/uL Eos # (Auto) (0.0-0.4) X10*3/uL Baso # (Auto) (0.0-0.2) X10*3/uL Abs Immat Gran (auto) (0.00-0.03) X10*3/uL Absolute Neuts (auto) (2.0-8.3) x10*3/uL Absolute Nucleated RBC (0.0-0.012) X10*3/uL Nucleated RBC % (auto) (0.0-0.2) /100WBC Sodium 144 (135-145) mmol/L Potassium 4.1 (3.3-5.1) mmol/L Chloride 105 (96-108) mmol/L Carbon Dioxide 25 (22-29) mmol/L Anion Gap 18 (12-20) BUN 6 L (9-16) mg/dL Creatinine 0.71 (0.5-1.4) mg/dL Estim Creat Clear Calc 95.9 Estimated GFR > 60 Fasting Glucose 111 H (60-99) mg/dL Lactic Acid (0.5-2.0) mmol/L Calcium 9.6 (8.4-10.2) mg/dL Magnesium 2.3 (1.6-2.6) mg/dL Total Bilirubin 0.3 (0.0-1.0) mg/dL AST 90 H (5-31) U/L ALT 40 H (0-31) U/L Alkaline Phosphatase 71 (39-117) U/L Total Protein 8.5 H (6.5-8.0) g/dL Albumin 3.8 (3.5-5.0) g/dL Urine Color STRAW Urine Appearance CLEAR Urine pH 6.5 (5.0-8.0) Ur Specific [place] <= 1.005 (1.005-1.025) Urine Protein NEG (NEG-TRACE) MG/DL Urine Glucose (UA) NEG (NEG) MG/DL Urine Ketones NEG (NEG) MG/DL Urine Blood NEG (NEG) Urine Nitrite NEG (NEG) Ur Leukocyte Esterase NEG (NEG) Urine RBC 0 (0) /HPF Urine WBC 0 (0-4) /HPF Ur Squamous Epith Cells 1+ /LPF Urine Bacteria NONE /LPF Urine Test NEGATIVE (NEGATIVE) 09/15/21 09/15/21 Range/Units 12:31 12:32 WBC 9.3 (4.8-10.8) X10*3/uL RBC 4.55 (4.20-5.50) X10*6/uL Hgb 14.5 (12.0-16.0) g/dl Hct 41.9 (37.0-47.0) % MCV 92.1 (80.0-98.0) fL MCH 31.9 (27.0-33.0) pg MCHC 34.6 (31.0-35.0) g/dl RDW 12.8 (11.0-16.0) % Plt Count 780 H (160-400) X10*3/uL MPV 8.2 L (9.4-12.3) fL Immature Gran % (Auto) 0.9 H (0.0-0.4) % Neut % (Auto) 52.2 (45-73) % Lymph % (Auto) 36.1 (20-40) % [place] % (Auto) 7.6 (2-11) % Eos % (Auto) 2.7 (0-4) % Baso % (Auto) 0.5 (0-2) % Lymph # (Auto) 3.4 (1.2-4.9) X10*3/uL [place] # (Auto) 0.7 (0.1-1.2) X10*3/uL Eos # (Auto) 0.3 (0.0-0.4) X10*3/uL Baso # (Auto) 0.1 (0.0-0.2) X10*3/uL Abs Immat Gran (auto) 0.08 H (0.00-0.03) X10*3/uL Absolute Neuts (auto) 4.9 (2.0-8.3) x10*3/uL Absolute Nucleated RBC 0.000 (0.0-0.012) X10*3/uL Nucleated RBC % (auto) 0.0 (0.0-0.2) /100WBC Sodium (135-145) mmol/L Potassium (3.3-5.1) mmol/L Chloride (96-108) mmol/L Carbon Dioxide (22-29) mmol/L Anion Gap (12-20) BUN (9-16) mg/dL Creatinine (0.5-1.4) mg/dL Estim Creat Clear Calc Estimated GFR Fasting Glucose (60-99) mg/dL Lactic Acid 2.5 H* (0.5-2.0) mmol/L Calcium (8.4-10.2) mg/dL Magnesium (1.6-2.6) mg/dL Total Bilirubin (0.0-1.0) mg/dL AST (5-31) U/L ALT (0-31) U/L Alkaline Phosphatase (39-117) U/L Total Protein (6.5-8.0) g/dL Albumin (3.5-5.0) g/dL Urine Color Urine Appearance Urine pH (5.0-8.0) Ur Specific [place] (1.005-1.025) Urine Protein (NEG-TRACE) MG/DL Urine Glucose (UA) (NEG) MG/DL Urine Ketones (NEG) MG/DL Urine Blood (NEG) Urine Nitrite (NEG) Ur Leukocyte Esterase (NEG) Urine RBC (0) /HPF Urine WBC (0-4) /HPF Ur Squamous Epith Cells /LPF Urine Bacteria /LPF Urine Test (NEGATIVE) Discharge Plan Discharge Clinical Impression: Vaginal anomaly Patient Disposition: Home, Self-Care Instructions: Ovarian Cyst (ED), Rectocele (ED), Cystocele (ED) Prescriptions: No Action metronidazole [Flagyl] 500 mg tablet 500 mg PO BID 7 Days Qty: 14 RF: 0 nicotine (polacrilex) 2 mg Gum 2 mg buccal Q2H PRN (Reason: Nicotine Cravings) Qty: 20 RF: 0 hydroxyzine HCl 25 mg Tablet 25 mg PO Q8H PRN (Reason: Anxiety) Qty: 4 RF: 0 Nexplanon 68 mg implant subdermal RF: 0 Referrals: Courtney Todd MD [Primary Care Provider] - 2 days Saud Hartley MD [Physician] - 2 days Stand Alone Forms: Work/School Release Print Language: Ethiopian
[2021-09-15 12:20] LABS: UPreg QC Valid YES; Urine Pregnancy NEGATIVE (NEGATIVE)
[2021-09-15 12:38] LABS: MANUAL DIFF FLAG NO
[2021-09-15 12:40] LABS: Basophils Absolute Auto 0.1 X10*3/uL (0.0-0.2); Basophils Percent Auto 0.5 % (0-2); Eosinophils Absolute Auto 0.3 X10*3/uL (0.0-0.4); Eosinophils Percent Auto 2.7 % (0-4); Hematocrit 41.9 % (37.0-47.0); Hemoglobin 14.5 g/dl (12.0-16.0); Imm Gran Abs Auto 0.08 X10*3/uL (0.00-0.03); Imm Gran Pct Auto 0.9 % (0.0-0.4); Lymphocytes Absolute Auto 3.4 X10*3/uL (1.2-4.9); Lymphocytes Percent Auto 36.1 % (20-40); Mean Corpuscular HGB Conc 34.6 g/dl (31.0-35.0); Mean Corpuscular Hemoglobin 31.9 pg (27.0-33.0); Mean Corpuscular Volume 92.1 fL (80.0-98.0); Mean Platelet Volume 8.2 fL (9.4-12.3); Monocytes Absolute Auto 0.7 X10*3/uL (0.1-1.2); Monocytes Percent Auto 7.6 % (2-11); Neutrophils Absolute Auto 4.9 x10*3/uL (2.0-8.3); Neutrophils Percent Auto 52.2 % (45-73); Platelet Count 780 X10*3/uL (160-400); Red Blood Count 4.55 X10*6/uL (4.20-5.50); Red Cell Distribution Width 12.8 % (11.0-16.0); White Blood Count 9.3 X10*3/uL (4.8-10.8)
[2021-09-15 12:49] LABS: Alanine Aminotransferase 40 U/L (0-31); Albumin Level 3.8 g/dL (3.5-5.0); Alkaline Phosphatase 71 U/L (39-117); Anion Gap 18 (12-20); Aspartate Amino Transferase 90 U/L (5-31); Bilirubin Total 0.3 mg/dL (0.0-1.0); Blood Urea Nitrogen 6 mg/dL (9-16); Calcium 9.6 mg/dL (8.4-10.2); Carbon Dioxide 25 mmol/L (22-29); Chloride 105 mmol/L (96-108); Creatinine Clr Calc Pharmacy 95.9; Estimated Glomerular Filt Rate > 60; Glucose Fasting 111 mg/dL (60-99); Magnesium 2.3 mg/dL (1.6-2.6); Potassium 4.1 mmol/L (3.3-5.1); Sodium 144 mmol/L (135-145); Total Protein 8.5 g/dL (6.5-8.0)
[2021-09-15 12:51] LABS: Lactic Acid 2.5 mmol/L (0.5-2.0)
[2021-09-15] MEDS: iohexoL 350 MG/ML 100 ML INFUS..BTL IV (13:20)
[2021-09-15 13:24] LABS: Appearance Urine CLEAR; Color Urine STRAW; Glucose Urine UA NEG (NEG); Leukocyte Esterase Urine NEG (NEG); Nitrite Urine NEG (NEG); PH 6.5 (5.0-8.0); Specific Gravity - Urine <= 1.005 (1.005-1.025); Urine Blood NEG (NEG); Urine Ketones NEG (NEG); Urine Protein NEG (NEG-TRACE)
[2021-09-15] MEDS: 0.9 % Sodium Chloride 1,000 ML 999 ML IVCONT (13:29)
[2021-09-15 13:41] VITALS: RESP 16
[2021-09-15] MEDS: ondansetron HCL 4 MG/2 ML VIAL IVPUSH (13:41)
[2021-09-15] MEDS: Morphine Sulfate 4 MG/ML CARTRIDGE IVPUSH (13:41)
[2021-09-15 13:42] LABS: RBC Urine 0 /HPF (0); Squamous Epithelial Cell Urine 1+ /LPF; WBC Urine 0 /HPF (0-4)
[2021-09-15 14:36] LABS: Reflex Lactate? Lactic Acid Added
[2021-09-15 15:35] VITALS: BP 108/74; PULSE 89; RESP 16; O2SAT 96
== END 2021-09-15 15:50 | disposition home or self-care (01) ==
PROVIDERS: Physician Assistant Medical; Emergency Provider Emergency Medicine; PCP Internal Medicine
DX: Q52.4 Other congenital malformations of vagina (principal); R10.2 Pelvic and perineal pain; F10.20 Alcohol dependence, uncomplicated; Y90.9 Presence of alcohol in blood, level not specified; F12.90 Cannabis use, unspecified, uncomplicated
CPT/HCPCS: 36415; 71045; 74177; 80053; 81001; 81025; 83605; 83735; 85025; 87040; 96361; 96374; 96375; 99284; J2270; J2405; Q9967

== ENCOUNTER 2021-10-19 19:31 | Emergency (ER) | payer OTHER, SELFPAY ==
--- NOTE | ~2021-10-19 | XR_ITS ---
EXAMINATION: LEFT ANKLE, LEFT FOOT CLINICAL INFORMATION: Ankle swelling and pain COMPARISON: None TECHNIQUE: 2 views ankle, 3 views left foot FINDINGS: There is marked soft tissue swelling laterally. No fractures or dislocations are seen. The ankle mortise appears stable. No significant abnormality is seen in the foot. XR/XR foot LT min 3V IMPRESSION: Lateral soft tissue swelling. No bone or joint abnormality is seen.
--- NOTE | ~2021-10-19 | XR_ITS ---
EXAMINATION: LEFT ANKLE, LEFT FOOT CLINICAL INFORMATION: Ankle swelling and pain COMPARISON: None TECHNIQUE: 2 views ankle, 3 views left foot FINDINGS: There is marked soft tissue swelling laterally. No fractures or dislocations are seen. The ankle mortise appears stable. No significant abnormality is seen in the foot. XR/XR ankle LT min 3V IMPRESSION: Lateral soft tissue swelling. No bone or joint abnormality is seen.
[2021-10-19 19:43] VITALS: BP 123/92; PULSE 100; RESP 18; TEMP 36.6; O2SAT 98; BMI 24.5
--- NOTE | 2021-10-19 20:03 | ED_ITS ---
HPI - Extremity Injury (Lower) General Chief Complaint: Extremity Injury, Lower Stated Complaint: left foot broken? 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 Patient admits to taking 3 nips after incident 2/2 pain, has been nonweightbearing since incident. Admits to mild tingling in toes. Denies numbness, weakness, injury to other area MD complaint: ankle injury and foot injury Onset (ago): hour(s) Related Data Home Medications Medication Instructions Recorded Confirmed etonogestrel 68 mg subdermal SUBDERMAL 12/16/20 implant (Nexplanon) Previous Rx's Medication Instructions Recorded hydroxyzine HCl 25 mg tablet 25 mg PO Q8H PRN #4 tab 06/03/20 nicotine (polacrilex) 2 mg gum 2 mg BUCCAL Q2H PRN #20 ea 06/03/20 metronidazole 500 mg tablet 500 mg PO BID 7 Days #14 tab 12/17/20 (Flagyl) ibuprofen 800 mg tablet 800 mg PO Q8H PRN #14 tab 10/19/21 Allergies Allergy/AdvReac Type Severity Reaction Status Date / Time No Known Allergies Allergy Unknown Verified 10/19/21 19:43 Review of Systems Review of Systems: Constitutional:No Fever, No Chills ENT/Mouth: No Nasal Congestion, No sore throat, No Swallowing Difficulty Cardiovascular: No Chest Pain, No SOB Respiratory: No Cough Gastrointestinal: No Nausea, No Vomiting, No Diarrhea, No Constipation, No Abdominal pain Genitourinary:, No Dysuria, No Urinary Frequency, No Flank Pain Musculoskeletal: + joint pain, No Myalgias, + Joint Swelling Skin: No Skin Lesions, No rash Neuro: No Weakness, No Numbness, + Paresthesias Yes all other systems are reviewed and are negative COUNTS INCLUDE 234 BEDS AT THE [facility] Past Medical History Attestation statement: The following information was validated with the patient. Medical History Anxiety and depression EtOH dependence Surgical History Hx of dilation and curettage Family History Family History Maternal Aunt History of breast cancer Social History Social History Alcohol intake: current Alcohol intake frequency: 0-2 drinks per day Alcohol type: beer, wine and hard liquor Substance Use Type: Crack/Cocaine and Marijuana Advance Directives: No Advance Directives Information Provided: No Patient : No Physical Exam Vital Signs: Vital Signs: Last Vital Signs Temp 98 F 10/19/21 19:43 Pulse 100 10/19/21 19:43 Resp 18 10/19/21 19:43 BP 123/92 H 10/19/21 19:43 Pulse Ox 98 10/19/21 19:43 BMI result Body Mass Index 24.5 Const: General: cooperative, healthy appearing and no acute distress Orientation/consciousness: patient oriented x3 Limitations: no limitations HENMT: Head: Yes normal to inspection and Yes atraumatic Ears: hearing grossly normal bilaterally General nose exam: Normal external nose present Face and sinus: Yes normal facial exam Eyes: General: appearance normal, both eyes and all related structures EOM: EOMs intact bilaterally Neck: Neck: Yes normal visual inspection and Yes no meningeal signs Resp: Effort & Inspection: normal respiratory effort and no respiratory distress Cardio: Rate: regular rate Heart sounds: S1 normal heart sound present and S2 normal heart sound present Peripheral pulses: dorsalis pedis present Skin: Rashes: no rashes Wounds: no wounds Neuro: General: patient oriented x3, tone normal, no meningeal signs and Unable to assess gait Gait exam (Neuro): Unable to assess gait Extrem: Other: Left ankle with noted swelling and ecchymosis. +ttp. Neurovascularly intact distally. Sensation intact to light touch. Ankle ROM limited secondary to pain. Knee/tib-fib nontender Course Course Course Narrative: XR foot LT min 3V/ XR ankle LT min 3V IMPRESSION: Lateral soft tissue swelling. No bone or joint abnormality is seen.? >> patient placed in air cast and supplied with crutches. 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 On exam vital signs stable, NAD, physical exam as above. Concern for ankle sprain versus fracture. Patient appears clinically sober Plan: XR Medical Records Attestation: I reviewed the patient's medical records. Lab Data Attestation: I reviewed the patient's lab results. Discharge Plan Discharge Clinical Impression: Ankle sprain Patient Disposition: Home, Self-Care Instructions: Ankle Sprain (ED) Additional Instructions: You sprained her ankle. Wear Aircast at home for stability and comfort. Ice and elevate Use crutches as needed Ibuprofen will help with inflammation and pain. In addition you may take Tylenol at home however your liver function has been elevated in the past so avoid if possible If pain becomes unbearable, you have numbness or weakness speech return to the ED Prescriptions: New ibuprofen 800 mg tablet 800 mg PO Q8H PRN (Reason: pain) Qty: 14 0RF No Action metronidazole [Flagyl] 500 mg tablet 500 mg PO BID 7 Days Qty: 14 0RF Rx Instructions: Take with food, Avoid alcohol and vinegar products nicotine (polacrilex) 2 mg Gum 2 mg buccal Q2H PRN (Reason: Nicotine Cravings) Qty: 20 0RF hydroxyzine HCl 25 mg Tablet 25 mg PO Q8H PRN (Reason: Anxiety) Qty: 4 0RF Nexplanon 68 mg implant subdermal 0RF Referrals: Physician,Unknown J [Primary Care Provider] - 2 days
[2021-10-19] MEDS: Ibuprofen 600 MG TABLET PO (21:09)
== END 2021-10-19 21:26 | disposition home or self-care (01) ==
PROVIDERS: Emergency Provider Internal Medicine
DX: S93.402A Sprain of unspecified ligament of left ankle, initial encounter (principal); M25.572 Pain in left ankle and joints of left foot; W18.30XA Fall on same level, unspecified, initial encounter; Y93.9 Activity, unspecified; Y92.9 Unspecified place or not applicable; Y99.9 Unspecified external cause status
CPT/HCPCS: 73610; 73630; 99284

== ENCOUNTER 2022-04-10 03:01 | Emergency (ER) | payer OTHER, SELFPAY ==
[2022-04-10 03:07] VITALS: BP 144/78; PULSE 110; O2SAT 100
[2022-04-10 03:25] VITALS: BP 110/78; PULSE 93; RESP 14; O2SAT 96; BMI 24.5
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
--- NOTE | 2022-04-10 03:42 | PC.NURSE ---
Wounds to elbow, chest and knees were irrigated with NS. Allowed to dry and left open to air. Pt. tolerated cleaning with no complaints of pain or discomfort.
--- NOTE | 2022-04-10 03:54 | PC.NURSE ---
Bandages applied to all abrasions.
== END 2022-04-10 04:32 | disposition home or self-care (01) ==
LOC: HO.ED 04:23
PROVIDERS: Emergency Provider Internal Medicine; PCP Internal Medicine
DX: S80.211A Abrasion, right knee, initial encounter (principal); S80.212A Abrasion, left knee, initial encounter; M25.562 Pain in left knee; M25.561 Pain in right knee; Y04.2XXA Assault by strike against or bumped into by another person, initial encounter; Y93.9 Activity, unspecified; Y92.9 Unspecified place or not applicable; Y99.9 Unspecified external cause status; Z79.899 Other long term (current) drug therapy
CPT/HCPCS: 99282; 99283

== ENCOUNTER 2022-06-23 09:37 | Outpatient (REF) | payer OTHER, SELFPAY ==
[2022-06-23 22:09] LABS: CT PCR DETECTED (Not Detect.); NG PCR NOT DETECTED (Not Detect.)
[2022-06-24 13:06] LABS: BV Int Neg Control Negative (Negative); BV Int Pos Control Positive (Positive)
== END 2022-06-23 09:38 | disposition home or self-care (01) ==
LOC: HO.LNP 09:37
PROVIDERS: Visit Provider Advanced Practice Midwife
DX: Z30.40 Encounter for surveillance of contraceptives, unspecified (principal); Z20.2 Contact with and (suspected) exposure to infections with a predominantly sexual mode of transmission; N89.8 Other specified noninflammatory disorders of vagina
CPT/HCPCS: 87480; 87491; 87510; 87591; 87660; 99212

== ENCOUNTER 2022-09-18 01:25 | Emergency (ER) | payer OTHER, SELFPAY ==
--- NOTE | ~2022-09-18 | XR_ITS ---
EXAMINATION: XR HAND WRIST, LEFT CLINICAL INFORMATION: Pain COMPARISON: None TECHNIQUE: 4 views of the left hand/wrist. FINDINGS: Osseous alignment throughout the hand and wrist is anatomic. No acute fracture is seen. No significant focal soft tissue abnormality identified. XR/XR hand wrist LT IMPRESSION: No acute findings identified.
[2022-09-18 01:28] VITALS: BP 121/84; PULSE 92; RESP 16; TEMP 36.5; O2SAT 99; BMI 25.4
--- NOTE | 2022-09-18 02:50 | PC.NURSE ---
pt c/o L wrist pain injured at work last week worsens with movmt pain rate 05/02 aox4 no apparent distress
--- NOTE | 2022-09-18 03:19 | ED.EXTPRO ---
HPI - Extremity Problem General Chief complaint: Extremity Problem Stated complaint: Wrist pain Time Seen by Provider: 09/18/22 02:45 Source: patient Mode of arrival: ambulatory Limitations: no limitations History of Present Illness HPI Narrative: Patient been having pain in the left thumb for last 1 week increases on movement of the left thumb no known trauma no paresthesia Related Data Home Medications Medication Instructions Recorded Confirmed etonogestrel 68 mg subdermal subdermal 12/16/20 implant (Nexplanon) Previous Rx's Medication Instructions Recorded hydroxyzine HCl 25 mg tablet 25 mg PO Q8H PRN Anxiety #4 tabs 06/03/20 ibuprofen 800 mg tablet 800 mg PO Q8H PRN pain #14 tabs 10/19/21 ibuprofen 600 mg tablet 600 mg PO Q8H PRN pain #30 tabs 04/10/22 doxycycline hyclate 100 mg capsule 100 mg PO BID 7 days #14 caps 06/24/22 metronidazole 500 mg tablet 500 mg PO BID 7 days #14 tabs 06/26/22 metronidazole 0.75 % (37.5 mg/5 1 appful vaginal BEDTIME 5 days 07/14/22 gram) vaginal gel #70 grams ibuprofen 600 mg tablet 600 mg PO Q6H PRN fever or pain 09/18/22 #30 tabs Allergies Allergy/AdvReac Type Severity Reaction Status Date / Time No Known Allergies Allergy Unknown Verified 06/23/22 09:26 Review of Systems Review of Systems: Yes all other systems are reviewed and are negative PMFSH Past Medical History Medical History Anxiety and depression EtOH dependence Irregular bleeding Surgical History Hx of dilation and curettage Family History Family History Maternal Aunt History of breast cancer Social History Social History Alcohol intake: never Smoked in Last 30 Days: Yes Use of substances other than those prescribed or required for medical reasons: Yes Substance Use Type: Marijuana Advance Directives: No Advance Directives Information Provided: No Physical Exam Vital Signs: Vital Signs: Last Vital Signs Temp 97.7 F 09/18/22 01:28 Pulse 92 09/18/22 01:28 Resp 16 09/18/22 01:28 BP 121/84 09/18/22 01:28 Pulse Ox 99 09/18/22 01:28 O2 Del Method 09/18/22 01:28 BMI result Body Mass Index 25.4 Extrem: Hand/finger images: 1. Tender to touch left extensor pollicis longus tendon good range of movement neurovascular intact Tinel sign Medical Decision Making Medical Decision Making MDM Narrative: Patient with left thumb tendinitis thumb spica was applied x-ray negative Discharge Plan Discharge Clinical Impression: Thumb tendonitis Patient Disposition: Home, Self-Care Instructions: Tendinitis (ED) Additional Instructions: wear the thumb spica splint to support the L thumb until heels complete Ibuprofen for pain Prescriptions: New ibuprofen 600 mg tablet 600 mg PO Q6H PRN (Reason: fever or pain) Qty: 30 0RF No Action doxycycline hyclate 100 mg capsule 100 mg PO BID 7 Days Qty: 14 0RF metronidazole 500 mg tablet 500 mg PO BID 7 Days Qty: 14 0RF Rx Instructions: Take with food, Avoid alcohol and vinegar products metronidazole 0.75 % (37.5mg/5 gram) gel 1 appful vaginal BEDTIME 5 Days Qty: 70 0RF hydroxyzine HCl 25 mg Tablet 25 mg PO Q8H PRN (Reason: Anxiety) Qty: 4 0RF ibuprofen 600 mg tablet 600 mg PO Q8H PRN (Reason: pain) Qty: 30 0RF ibuprofen 800 mg tablet 800 mg PO Q8H PRN (Reason: pain) Qty: 14 0RF Nexplanon 68 mg implant subdermal
[2022-09-18] MEDS: Ibuprofen 600 MG TABLET PO (03:25)
--- NOTE | 2022-09-18 03:41 | PC.NURSE ---
Discharge instructions given/explained, ambulates safely/independently, no apparent distress, medicated on discharge, all questions answered
== END 2022-09-18 03:27 | disposition home or self-care (01) ==
PROVIDERS: Emergency Provider Internal Medicine
DX: M77.8 Other enthesopathies, not elsewhere classified (principal); M79.645 Pain in left finger(s)
CPT/HCPCS: 29125; 73110; 73130; 99283; 99284

== ENCOUNTER 2022-10-08 08:48 | Outpatient (REF) | payer OTHER, SELFPAY ==
[2022-10-08 15:10] LABS: CT PCR NOT DETECTED (Not Detect.); NG PCR NOT DETECTED (Not Detect.)
[2022-10-09 13:13] LABS: BV Int Neg Control Negative (Negative); BV Int Pos Control Positive (Positive)
== END 2022-10-08 08:49 | disposition home or self-care (01) ==
LOC: HO.LAB 08:48
PROVIDERS: Visit Provider Advanced Practice Midwife
DX: Z01.419 Encounter for gynecological examination (general) (routine) without abnormal findings (principal); N89.8 Other specified noninflammatory disorders of vagina; Z11.3 Encounter for screening for infections with a predominantly sexual mode of transmission
CPT/HCPCS: 0353U; 87480; 87510; 87660; 99212

== ENCOUNTER 2022-10-08 09:17 | Outpatient (REF) | payer OTHER, SELFPAY | END 2022-10-08 09:18 | disposition home or self-care (01) | LOC: HO.LNP 09:17 | PROVIDERS: Visit Provider Advanced Practice Midwife | DX: Z13.89 Encounter for screening for other disorder (principal) ==

== ENCOUNTER → 2023-01-12 10:03 | Outpatient (BNVA) | payer OTHER, SELFPAY | PROVIDERS: Visit Provider Advanced Practice Midwife | DX: Z30.46 Encounter for surveillance of implantable subdermal contraceptive (principal); N92.6 Irregular menstruation, unspecified | CPT/HCPCS: 11982 ==

== ENCOUNTER 2023-01-21 11:08 | Outpatient (REF) | payer OTHER, SELFPAY ==
[2023-01-21 15:24] LABS: CT PCR NOT DETECTED (Not Detect.); NG PCR NOT DETECTED (Not Detect.)
[2023-01-22 09:20] LABS: BV Int Neg Control Negative (Negative); BV Int Pos Control Positive (Positive)
== END 2023-01-21 11:09 | disposition home or self-care (01) ==
LOC: HO.LAB 11:08
PROVIDERS: Visit Provider Advanced Practice Midwife
DX: N89.8 Other specified noninflammatory disorders of vagina (principal); R10.2 Pelvic and perineal pain
CPT/HCPCS: 0353U; 81025; 87480; 87510; 87660; 99212

== ENCOUNTER 2023-01-21 11:50 | Outpatient (REF) | payer OTHER, SELFPAY | END 2023-01-21 11:51 | disposition home or self-care (01) | LOC: HO.LNP 11:50 | PROVIDERS: Visit Provider Advanced Practice Midwife | DX: Z13.89 Encounter for screening for other disorder (principal) ==

== ENCOUNTER 2023-03-02 14:19 | Outpatient (AMB) | payer OTHER, SELFPAY ==
--- NOTE | 2023-03-02 14:28 | A.OFFVIS_ITS ---
Intake Vital Signs 03/02/23 14:29 Height 5 ft 1 in Weight 133 lb BMI 25.1 BP 120/82 Intake Visit Reasons: 4-6 meche Intake Note: The patient agreed to use of a family practice medical doctor during this encounter. Scribed for PABLITO Holt by Maisha Benton family practice medical doctor, on 03/02/2023 at 2:41 pm EST. Health Care Analyst: Health Care Analyst Present ([place]) Allergies No Known Allergies Allergy (Unknown, Verified 03/02/23 14:31) Is last menstrual period known: Yes Last menstrual period: 02/27/23 HPI HPI Comments History of Present Illness Details She is here for MECHE for Chlamydia. She reports partner was negative on testing, and that she may have contracted this from another source. She has completed her treatment and feels better. Denies any vaginal itching or irritation. REPLACED BY [facility] Medical History Anxiety and depression EtOH dependence Irregular bleeding Nexplanon removal Surgical History Hx of dilation and curettage Family History Maternal Aunt History of breast cancer Social History Alcohol intake: never Substance Use Type: Marijuana Female Reproductive History Menstrual Date of last menstrual period: 02/27/23 Physical Exam Vital Signs: Last Vital Signs BP 120/82 03/02/23 14:29 BMI result Body Mass Index 25.1 Const General: cooperative, healthy appearing, comfortable, no acute distress, well developed, alert, awake and Physically active Other: General: Yes bladder normal to palpation External Female Exam: normal external appearance and normal appearance of the urethra Speculum Exam - Vagina: normal appearance of the vagina, normal palpation and normal vaginal discharge Speculum Exam - Cervix: normal appearance of the cervix and normal palpation Bimanual exam- vagina & uterus: normal bimanual exam, normal palpation, bladder normal to palpation and normal palpation Bimanual Exam- Adnexa, other: normal adnexae and no masses Results AMB Test Urine AMB Test Urine Negative Last Edit by JOLANTA Toribio on 03/02/23 14:37 Results Reviewed Results Reviewed: Laboratory Last Values [facility] Clinic Negative 03/02/23 14:36 Laboratory Tests 01/21/23 11:08 Gardnerella DNA Probe Positive A Trichomonas DNA Probe Positive A Assessment & Plan Assessment & Plan (1) Encounter to discuss test results: Code(s): Z71.2 - Person consulting for explanation of examination or test findings Plan: Discussed: GC/CT panel done today. Await results and treat accordingly PNV sent to pharmacy. Planning future now. Advised to call if any missed menses. Maintaining a healthy lifestyle including a well balanced diet. Monitor periods. All of her questions and concerns were addressed to the best of my ability and shared decision making. She is agreeable to plan of care. (2) Potential exposure to STD: Code(s): Z20.2 - Contact with and (suspected) exposure to infections with a predominantly sexual mode of transmission Orders: Orders Bacterial Vaginosis Panel Today Z20.2 - Contact with and (suspected) exposure to infections with a predominantly sexual mode of transmission AMB HCG Urine Test Today Z32.02 - Encounter for test, result negative Medications: Refilled PNV,calcium 48-bsmi-ayoen acid 27 mg iron- 1 mg ( Vitamins Plus Low Iron) 1 tab PO DAILY 90 tabs 2RF Coding Level of Care Code Est Pt Level 3 (49924) Diagnoses Encounter to discuss test results Z71.2 Potential exposure to STD Z20.2
[2023-03-02 14:29] VITALS: BP 120/82; BMI 25.1
== END 2023-03-02 14:48 | disposition home or self-care (01) ==
LOC: HO.HWS 14:19
PROVIDERS: Visit Provider Advanced Practice Midwife
DX: Z71.2 Person consulting for explanation of examination or test findings (principal); Z20.2 Contact with and (suspected) exposure to infections with a predominantly sexual mode of transmission; Z32.02 Encounter for pregnancy test, result negative
CPT/HCPCS: 99213

== ENCOUNTER 2023-03-02 14:19 | Outpatient (REF) | payer OTHER, SELFPAY ==
[2023-03-03 13:31] LABS: BV Int Neg Control Negative (Negative); BV Int Pos Control Positive (Positive)
== END 2023-03-02 14:20 | disposition home or self-care (01) ==
LOC: HO.LAB 14:19
PROVIDERS: Visit Provider Advanced Practice Midwife
DX: Z20.2 Contact with and (suspected) exposure to infections with a predominantly sexual mode of transmission (principal); Z71.2 Person consulting for explanation of examination or test findings
CPT/HCPCS: 81025; 87480; 87510; 87660; 99212

== ENCOUNTER 2023-03-23 09:54 | Outpatient (AMB) | payer OTHER, SELFPAY ==
[2023-03-23 09:55] VITALS: BP 118/70; BMI 26.1
--- NOTE | 2023-03-23 09:55 | A.OFFVIS_ITS ---
Intake Vital Signs 03/23/23 09:55 Height 5 ft 1 in Weight 138 lb BMI 26.1 BP 118/70 Blood Pressure Location Lt brachial Position Sitting Intake Visit Reasons: Control Consult Manufacturing Lead Required: No Accompanied by: Self / Same As Patient Allergies No Known Allergies Allergy (Unknown, Verified 03/23/23 09:56) Medication List - Last Reconciled 03/23/23 by Cyndie Patterson CNM metronidazole 500 mg PO BID PNV,calcium 48-izkl-bhyzc acid 27 mg iron- 1 mg ( Vitamins Plus Low Iron) 1 tab PO DAILY HPI Control Consult HPI Details Patient is here as a consult visit. She had a Nexplanon for many many years sequentially, and had it removed 01/12/2023 to try to get and was started on vitamins at that time she also had some recent STI evaluations and had recent chlamydia trichomoniasis and bacterial vaginosis she had a negative test a couple of weeks ago at an office visit and she had 1 day of bleeding on February 24 and on this past WednesdayMarch 21 she had some symptoms and did a test and it was positive. She is very happy but she is nervous she did have a miscarriage when she was very young she delivered her 14-year-old son here at this hospital and did not know that the birthing center had closed. She denied any medical problems in her past or in her . She did get recently diagnosed also with BV and was given a prescription for Flagyl but delayed taking it until this past weekend because she went to a [facility] [employer] the weekend before and wanted at that time when she was not to be able to have a drink. Now that she knows she is she is not going to be drinking any alcohol. She works nights at [employer] and worked last night and will work [employer] as well. But she is very excited about the and not feeling tired at this moment. She is not having any other untoward symptoms. [facility] Medical History (Updated 03/23/23 @ 10:53 by Cyndie Patterson CNM) Anxiety and depression EtOH dependence Irregular bleeding Nexplanon removal Surgical History Hx of dilation and curettage Family History Maternal Aunt History of breast cancer Social History Alcohol intake: never Substance Use Type: Marijuana Female Reproductive History Menstrual Total pregnancies: 4 Number of Living Children: 1 Ab spontaneous: 2 Physical Exam Vital Signs: Last Vital Signs BP 118/70 03/23/23 09:55 BMI result Body Mass Index 26.1 Results AMB Test Urine AMB Test Urine Positive Last Edit by Cinda Barrera CMA on 10:15 Assessment & Plan Assessment & Plan (1) STI (sexually transmitted infection): Comment: recent chlamydia and trichomoniasis, ( & BV) Code(s): A64 - Unspecified sexually transmitted disease (2) Early stage of : Comment: Nexplanon removed 01/12/2023. Bled 1 day February 24. Negative test 2 weeks ago, positive symptoms and test 03/21 Code(s): Z34.90 - Encounter for supervision of normal , unspecified, unspecified trimester Plan Patient is here as a consult visit. She had a Nexplanon for many many years sequentially, and had it removed 01/12/2023 to try to get and was started on vitamins at that time she also had some recent STI evaluations and had recent chlamydia trichomoniasis and bacterial vaginosis she had a negative test a couple of weeks ago at an office visit and she had 1 day of bleeding on February 24 and on this past WednesdayMarch 21 she had some symptoms and did a test and it was positive. She is very happy but she is nervous she did have a miscarriage when she was very young she delivered her 14-year-old son here at this hospital and did not know that the birthing center had closed. She denied any medical problems in her past or in her . She did get recently diagnosed also with BV and was given a prescription for Flagyl but delayed taking it until this past weekend because she went to a [facility] [employer] the weekend before and wanted at that time when she was not to be able to have a drink. Now that she knows she is she is not going to be drinking any alcohol. She works nights at [employer] and worked last night and will work [employer] as well. But she is very excited about the and not feeling tired at this moment. She is not having any other untoward symptoms. ---I reviewed the patient's medical history and risk factors for . I reviewed her menstrual history and regularity, and reviewed the dating of her last menstrual period and other indicators. I reviewed where she is in this , and what to expect in this early stage of the . ---I reviewed the routines of care. I reviewed the options open to her including care here and that delivery does not occur here; it occurs currently at our referring institution.. I also reviewed the options of receiving care and delivery at [facility], and [facility] or [facility], I reviewed high risk factors that would necessitate a transfer of her care to [facility]. ---I reviewed basic good health and ways to achieve a healthy and goals. I reviewed warning signs that would necessitate calling us: for instance, severe pain, bleeding, severe nausea and vomiting, such that she is unable to keep anything down and feeling weak. ---I discussed next steps, if she continues care here, including scheduling of the stopper maker helper visit, and blood work, scheduling of the OB physical visit with a care provider, and timing and scheduling of initial ultrasounds and genetic screening and their purpose. I ordered vitamins for her if she did not have them. I reviewed basic healthy goals with diet and active exercise and activity and avoidance of toxic substances.. I reviewed emotional supports and stressors in her life, and family relationship and supports including partner supports.. Wants to come here for care she has seen [place] many times for visits and she believes this CNM was present at her 16 years ago. She is fine with coming here for visits and delivering at [facility] even if she does not know the delivering team. I did inform her that the basic ultrasounds will take place there although I am ordering a dating ultrasound to be done in about 3 weeks. Her visit after that will be with the RN for the intake and then after 1 of the CNM since and at 1 of those visits the nuchal translucency and genetic screening testing will be ordered. And those will be done at [facility]. I also informed her that the anatomy scan at 20 weeks would be at [facility] as well. She already has vitamins could she has been on them since her Nexplanon removal as this was planned she is with her partner that she has known since she was very young and did not imagine that they would end up being together and she is very excited. Orders: Orders US OB <= 14 weeks fetus 3 Weeks Z34.90 - Encounter for supervision of normal , unspecified, unspecified trimester AMB HCG Urine Test Today Z34.90 - Encounter for supervision of normal , unspecified, unspecified trimester Coding Level of Care Code Est Pt Level 3 (84972) Diagnoses STI (sexually transmitted infection) A64 Early stage of Z34.90
== END 2023-03-23 10:55 | disposition home or self-care (01) ==
PROVIDERS: Visit Provider Advanced Practice Midwife
DX: A64 Unspecified sexually transmitted disease (principal); Z34.90 Encounter for supervision of normal pregnancy, unspecified, unspecified trimester
CPT/HCPCS: 99213

== ENCOUNTER → 2023-03-23 09:54 | Outpatient (BNVA) | payer OTHER, SELFPAY | PROVIDERS: Visit Provider Advanced Practice Midwife | DX: O09.521 Supervision of elderly multigravida, first trimester (principal); A64 Unspecified sexually transmitted disease; Z3A.01 Less than 8 weeks gestation of pregnancy | CPT/HCPCS: 99212 ==

== ENCOUNTER 2023-04-13 13:23 | Outpatient (REF) | payer OTHER, SELFPAY ==
--- NOTE | ~2023-04-13 | US_ITS ---
EXAMINATION: US OBSTETRICAL ULTRASOUND CLINICAL INFORMATION: Positive ; uncertain last menstrual period. COMPARISON: None available. LMP: Uncertain. Gestational age by maternal dates is uncertain. Estimated date of delivery by maternal dates is uncertain. TECHNIQUE: Ultrasound of the maternal pelvis is performed using transabdominal transducer. M-mode Doppler is also performed. FINDINGS: There is a single intrauterine gestational sac with visible yolk sac, embryo/fetus, and cardiac activity. There is no significant subchorionic hemorrhage or hematoma. HR: 139 beats per minute. CRL (crown rump length): 0.80 cm (6 weeks and 6 days +/- 4 days). MIKEY (estimated date of delivery): 12/01/2023 +/- 4 days. MATERNAL ADNEXA: The right maternal ovary measures 3.7 x 1.8 x 2.2 cm. The right ovary contains a 2.3 x 1.7 x 1.7 cm simple, dominant follicle, which requires no imaging follow-up. The left maternal ovary measures 3.3 x 2.0 x 2.4 cm. There is no significant maternal adnexal mass. No maternal pelvic ascites. US/US OB <= 14 weeks fetus IMPRESSION: 1. Single intrauterine gestation with ultrasound gestational age of 6 weeks and 6 days +/- 4 days. 2. Estimated date of delivery is 12/01/2023 +/- 4 days. 3. No maternal adnexal mass or pelvic ascites.
== END 2023-04-13 13:24 | disposition home or self-care (01) ==
LOC: HO.US 13:23
PROVIDERS: Visit Provider Advanced Practice Midwife
DX: O09.529 Supervision of elderly multigravida, unspecified trimester (principal)
CPT/HCPCS: 76801

== ENCOUNTER 2023-04-22 09:52 | Outpatient (REF) | payer OTHER, SELFPAY ==
[2023-04-22 13:43] LABS: Hematocrit 36.7 % (37.0-47.0); Hemoglobin 12.4 g/dl (12.0-16.0); Mean Corpuscular HGB Conc 33.8 g/dl (31.0-35.0); Mean Corpuscular Volume 91.8 fL (80.0-98.0); Mean Platelet Volume 9.3 fL (9.4-12.3); Platelet Count 439 X10*3/uL (160-400); Red Cell Distribution Width 11.8 % (11.0-16.0); White Blood Count 13.7 X10*3/uL (4.8-10.8)
[2023-04-22 14:13] LABS: Glucose 1 Hour PP 50gm Dose 93 mg/dL (60-140)
[2023-04-22 15:55] LABS: Amphetamine Screen Urine Not Detected (Not Detect); Barbiturates, Urine Not Detected (Not Detect); Benzodiazepines Screen Urine Not Detected (Not Detect); Cannabinoid Screen Urine Not Detected (Not Detect); Cocaine Screen Urine Not Detected (Not Detect); Fentanyl, urine Not Detected (Not Detect); Opiate Screen Urine Not Detected (Not Detect); Phencyclidine Screen Urine Not Detected (Not Detect)
[2023-04-23 08:10] LABS: HIV AB/AG Nonreactive (Nonreactive); HIV Num 1 0.13 S/CO (0.00-0.99); Hepatitis B Core Antibody Nonreactive (Nonreactive); ~HepC Num1 0.05 S/CO (0.00-0.79); ~Hepatitis C Antibody Nonreactive (Nonreactive)
[2023-04-23 08:12] LABS: HBsAGNum1 0.36 S/CO (0.00-0.99); Hepatitis B Surface Antigen Negative (Negative)
[2023-04-23 08:28] LABS: Syphilis Screen Nonreactive (Nonreactive)
[2023-04-24 02:03] LABS: Rubella IgG Antibody 5.33 Index
[2023-05-04 20:48] LABS: CF Ethnicity NG; Cystic Fibrosis NEGATIVE (NEGATIVE)
== END 2023-04-22 09:53 | disposition home or self-care (01) ==
LOC: HO.LAB 09:52
PROVIDERS: Advanced Practice Midwife; Visit Provider Advanced Practice Midwife
DX: O09.521 Supervision of elderly multigravida, first trimester (principal); O09.11 Supervision of pregnancy with history of ectopic pregnancy, first trimester
CPT/HCPCS: 36415; 80307; 81220; 82950; 85027; 86704; 86762; 86780; 86787; 86803; 86850; 86900; 87086; 87340; 87389; 99212

== ENCOUNTER 2023-04-22 09:52 | Outpatient (AMB) | payer OTHER, SELFPAY ==
[2023-04-22 09:57] VITALS: BMI 27.1
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
== END 2023-04-22 10:50 | disposition home or self-care (01) ==
PROVIDERS: Visit Provider Advanced Practice Midwife
DX: O09.521 Supervision of elderly multigravida, first trimester (principal); O09.10 Supervision of pregnancy with history of ectopic pregnancy, unspecified trimester
CPT/HCPCS: 25942

== ENCOUNTER 2023-05-07 09:24 | Outpatient (REF) | payer OTHER, SELFPAY ==
[2023-05-07 19:29] LABS: CT PCR NOT DETECTED (Not Detect.); NG PCR NOT DETECTED (Not Detect.)
[2023-05-08 12:50] LABS: BV Int Neg Control Negative (Negative); BV Int Pos Control Positive (Positive)
== END 2023-05-07 09:25 | disposition home or self-care (01) ==
LOC: HO.LNP 09:24
PROVIDERS: Visit Provider Advanced Practice Midwife
DX: O09.521 Supervision of elderly multigravida, first trimester (principal); Z3A.10 10 weeks gestation of pregnancy
CPT/HCPCS: 0353U; 87480; 87510; 87660; 99212

== ENCOUNTER 2023-05-07 09:24 | Outpatient (AMB) | payer OTHER, SELFPAY ==
[2023-05-07 09:28] VITALS: BP 114/66; BMI 27.6
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
== END 2023-05-07 10:06 | disposition home or self-care (01) ==
PROVIDERS: Visit Provider Advanced Practice Midwife
DX: O09.521 Supervision of elderly multigravida, first trimester (principal)
CPT/HCPCS: 25942

== ENCOUNTER 2023-06-04 09:10 | Outpatient (AMB) | payer OTHER, SELFPAY ==
[2023-06-04 09:18] VITALS: BP 98/58; BMI 27.8
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
== END 2023-06-04 09:54 | disposition home or self-care (01) ==
PROVIDERS: Visit Provider Advanced Practice Midwife
DX: Z34.82 Encounter for supervision of other normal pregnancy, second trimester (principal)
CPT/HCPCS: 25942

== ENCOUNTER → 2023-06-04 09:10 | Outpatient (BNVA) | payer OTHER, SELFPAY | PROVIDERS: Visit Provider Advanced Practice Midwife | DX: O09.521 Supervision of elderly multigravida, first trimester (principal); Z3A.14 14 weeks gestation of pregnancy | CPT/HCPCS: 99212 ==

== ENCOUNTER 2023-07-02 10:05 | Outpatient (REF) | payer OTHER, SELFPAY ==
[2023-07-02 12:37] LABS: Alanine Aminotransferase 8 U/L (0-31); Aspartate Amino Transferase 12 U/L (5-31)
[2023-07-09 18:48] LABS: Chendeoxycholic Acid 1.1 umol/L (< OR = 3.9); Cholic Acid <0.5 umol/L (< OR = 2.8); Deoxycholic Acid 0.6 umol/L (< OR = 2.3)
== END 2023-07-02 10:06 | disposition home or self-care (01) ==
LOC: HO.LAB 10:05
PROVIDERS: Visit Provider Advanced Practice Midwife
DX: O26.892 Other specified pregnancy related conditions, second trimester (principal); R51.9 Headache, unspecified; L29.9 Pruritus, unspecified; Z3A.18 18 weeks gestation of pregnancy
CPT/HCPCS: 36415; 81003; 82542; 84450; 84460; 99212

== ENCOUNTER 2023-07-02 10:05 | Outpatient (AMB) | payer OTHER, SELFPAY ==
--- OUTSIDE RECORDS SUMMARY | 2023-07-02 10:07 | XMS_ITS | Continuity of Care Document ---
Author Name Unknown Organization [facility] Address [address] [place] [address]- Care Team Providers Care Printer'S Devil Name Role Phone Not on Staff, PCP Primary Care Physician Unavail able Encounter [facility] Date(s): 10/23/21 - 11/22/[address] [address]- Allergies, Adverse Reactions, Alerts Substance Reaction Severity Status Cats Active Dogs Active Immunizations Given and Recorded Vaccine Date Status Refusal Reason tetanus/diphtheria/pertussis, acel(Tdap) 11/17/21 Given influenza virus vaccine, inactivated 05/07/17 Clif rded Medications diclofenac 1% topical gel 1 application, Topically, 4 times a day, # 100 Gm, 0 Refills, Maintenance, 11/17/21 15:24:00 EDT, Gel, [facility] #[id number], Partial fill upon patient request if the prescription is for a schedule II opioid drug., 156.5, cm, 11/17/21 14:33:00 E... Start Date: 11/17/21 Stop Date: 12/01/21 Status: Ordered gabapentin 400 mg oral capsule 400 mg, 1, capsule, By Mouth, 3 times a day, Start with three times per day for 3 days, and then twice per day for one day then stop. First dose should be tonight, # 12 capsule, Refills 0, Tot. Refills 0, Maintenance, 11/17/21 15:24:00 EDT, Route t... Start Date: 11/17/21 Stop Date: 11/21/21 Status: Ordered Problem List Condition Effective Dates Status Health Status Inform ant Cyst, ovarian(Confirmed) 1 Active Alcohol use disorder, modera te, dependence(Confirmed) Active Tobacco use(Confirmed) Active 1Through [place] Social History Social History Type Response Smoking Status Never (less than 100 in lifetime) entered on: 11/17/21 Sex
--- OUTSIDE RECORDS SUMMARY | 2023-07-02 10:07 | XMS_ITS | Continuity of Care Document ---
Author Name Unknown Organization [facility] Address [address] [place] [address]- Care Team Providers Care Loom Winder Tender Name Role Phone Not on Staff, PCP Primary Care Physician Unavail able [place]counter [facility](s): 10/23/21 - 11/26/[address] [address]- Attending Physician: Not on Staff, Attending MD Allergies, Adverse Reactions, Alerts Substance Reaction Severity Status Cats Active Dogs Active Immunizations Given and Recorded Vaccine Date Status Refusal Reason tetanus/diphtheria/pertussis, acel(Tdap) 11/17/21 Given influenza virus vaccine, inactivated 05/07/17 Clif rded Medications diclofenac 1% topical gel 1 application, Topically, 4 times a day, # 100 Gm, 0 Refills, Maintenance, 11/17/21 15:24:00 EDT, Gel, [facility] #[id number], Partial fill upon patient request if the [...] te, dependence(Confirmed) Active Tobacco use(Confirmed) Active 1Through [place] Social History Social History Type Response Smoking Status Never (less than 100 in lifetime) entered on: 11/17/21 Sex
--- OUTSIDE RECORDS SUMMARY | 2023-07-02 10:07 | XMS_ITS | Continuity of Care Document ---
Author Name Unknown Organization [facility] Address [address] [place] [address]- Care Team Providers Care Resume Writer Name Role Phone Not on Staff, PCP Primary Care Physician Unavail able [place] [facility] - 01/06/[address] [address]- Allergies, Adverse Reactions, Alerts Substance Reaction Severity Status Cats Active Dogs Active Immunizations Given and Recorded Vaccine Date Status Refusal Reason tetanus/diphtheria/pertussis, acel(Tdap) 11/17/21 Given influenza virus vaccine, inactivated 05/07/17 Clif rded Medications diclofenac 1% topical gel 1 application, Topically, 4 times a day, # 100 Gm, 0 Refills, Maintenance, 11/17/21 15:24:00 EDT, Gel, [facility] #[id number], Partial fill upon patient request if the [...] te, dependence(Confirmed) Active Tobacco use(Confirmed) Active 1Through [place] Social History Social History Type Response Smoking Status Never (less than 100 in lifetime) entered on: 11/17/21 Sex
--- OUTSIDE RECORDS SUMMARY | 2023-07-02 10:07 | XMS_ITS | Continuity of Care Document ---
Author Name Unknown Organization [facility] Address [address] [place] [address]- Care Team Providers Care Bight Maker Name Role Phone Not on Staff, PCP Primary Care Physician Unavail able Encounter [facility] Date(s): 05/07/23 - 06/06/[facility] [address] [place] [address] Allergies, Adverse Reactions, Alerts Substance Reaction Severity Status Cats Active Dogs Active Immunizations Given and Recorded Vaccine Date Status Refusal Reason tetanus/diphtheria/pertussis, acel(Tdap) 11/17/21 Given influenza virus vaccine, inactivated 05/07/17 Clif rded Medications diclofenac 1% topical gel 1 application, Topically, 4 times a day, # 100 Gm, 0 Refills, Maintenance, 11/17/21 15:24:00 EDT, Gel, [facility] #[id number], Partial fill upon patient request if the [...] Date: 11/21/21 Status: Ordered Problem List Condition Confirmation Course Effective Dates Status Health St atus Informant Cyst, ovarian 1 Confirmed Active Alcohol use disorder, moderate, dependence Confirmed Active Tobacco use Confirmed Active 1Through [place] Social History Social History Type Response Smoking Status Never (less than 100 in lifetime) entered on: 11/17/21 Sex Patient Care team information Care Team Personnel Name: Not on Staff, PCP Position: S Physician (General Medicine) Member Role: PCP Care Team Related Persons Name: RHEA GALINDO Address: home [address] [place] [address] Name: TANVIR GONZALEZ Address: home SAME PT
--- OUTSIDE RECORDS SUMMARY | 2023-07-02 10:07 | XMS_ITS | Continuity of Care Document ---
Author Name Unknown Organization [facility] Address [address] [place] [address]- Care Team Providers Care Operations Scheduler Name Role Phone Not on Staff, PCP Primary Care Physician Unavail able Encounter [facility] Date(s): 05/07/23 - 06/06/23 [facility] [address] [place] [address] Allergies, Adverse Reactions, Alerts Substance Reaction Severity Status Cats Active Dogs Active Immunizations Given and Recorded Vaccine Date Status Refusal Reason tetanus/diphtheria/pertussis, acel(Tdap) 11/17/21 Given influenza virus vaccine, inactivated 05/07/17 Clif rded Medications diclofenac 1% topical gel 1 application, Topically, 4 times a day, # 100 Gm, 0 Refills, Maintenance, 11/17/21 15:24:00 EDT, Gel, [facility][id number], Partial fill upon patient request if the [...] Confirmed Active Tobacco use Confirmed Active 1Through [place] Social History Social History Type Response Smoking Status Never (less than 100 in lifetime) entered on: 11/17/21 Sex Patient Care team information Care Team Personnel Name: Not on Staff, PCP Position: S Physician (General Medicine) Member Role: PCP Care Team Related Persons Name: RHEA GALINDO Address: home [address] [place] [address] Name: TANVIR GONAZLEZ Address: home SAME PT
--- OUTSIDE RECORDS SUMMARY | 2023-07-02 10:07 | XMS_ITS | Continuity of Care Document ---
Author Name Unknown Organization [facility] Address [address] [place] [address]- Care Team Providers Care Food Service Team Member Name Role Phone Not on Staff, PCP Primary Care Physician Unavail able Encounter [facility] Date(s): 12/30/21 - 02/04/[address] [address] Attending Physician: Rickey Stubbs NP Admitting Physician: Rickey Stubbs NP Referring Physician: Rickey Stubbs NP Allergies, Adverse Reactions, Alerts Substance Reaction Severity Status Cats Active Dogs Active Immunizations Given and Recorded Vaccine Date Status Refusal Reason tetanus/diphtheria/pertussis, acel(Tdap) 11/17/21 Given influenza virus vaccine, inactivated 05/07/17 Clif rded Medications diclofenac 1% topical gel 1 application, Topically, 4 times a day, # 100 Gm, 0 Refills, Maintenance, 11/17/21 15:24:00 EDT, Gel, [facility] #[id number], Partial fill upon patient request if the [...] te, dependence(Confirmed) Active Tobacco use(Confirmed) Active 1Through [place] Social History Social History Type Response Smoking Status Never (less than 100 in lifetime) entered on: 11/17/21 Sex
--- OUTSIDE RECORDS SUMMARY | 2023-07-02 10:08 | XMS_ITS | Continuity of Care Document ---
Author Name Unknown Organization [facility] Address [address] [place] [address]- Care Team Providers Care Service Trainer Name Role Phone Not on Staff, PCP Primary Care Physician Unavail able Encounter [facility] Date(s): 01/05/22 - 02/04/[address] [address] Attending Physician: Ashli Herrera Admitting Physician: AdmAshli osorio Referring Physician: AdmtrAshli Allergies, Adverse Reactions, Alerts Substance Reaction Severity Status Cats Active Dogs Active Immunizations Given and Recorded Vaccine Date Status Refusal Reason tetanus/diphtheria/pertussis, acel(Tdap) 11/17/21 Given influenza virus vaccine, inactivated 05/07/17 Clif rded Medications diclofenac 1% topical gel 1 application, Topically, 4 times a day, # 100 Gm, 0 Refills, Maintenance, 11/17/21 15:24:00 EDT, Gel, [facility] #[id number], Partial fill upon patient request if the [...]
--- OUTSIDE RECORDS SUMMARY | 2023-07-02 10:08 | XMS_ITS | Continuity of Care Document ---
Author Name Unknown Organization [facility] Address [address] [place] [address]- Care Team Providers Care Demolition Expert Name Role Phone Not on Staff, PCP Primary Care Physician Unavail able [place] [facility] [place] 12/11/[place] - 01/28/[address] [address]- Attending Physician: Rickey Stubbs NP Admitting Physician: [...] 0 Refills, Maintenance, 11/17/21 15:24:00 EDT, Gel, [facility] #[id number], Partial fill upon patient request if the [...] te, dependence(Confirmed) Active Tobacco use(Confirmed) Active 1Through [place] Social History Social History Type Response Smoking Status Never (less than 100 in lifetime) entered on: 11/17/21 Sex
--- OUTSIDE RECORDS SUMMARY | 2023-07-02 10:08 | XMS_ITS | Continuity of Care Document ---
Author Name Unknown Organization [facility] Address [address] [place] [address]- Care Team Providers Care Jd Edwards Consultant Name Role Phone Not on Staff, PCP Primary Care Physician Unavail able [place] [facility] [place] 11/17/21 - 01/10/[address] [address]- Attending Physician: Not on Staff, Attending MD Referring Physician: Evelyne JACK SPOOLER TENDERRickey Allergies, Adverse Reactions, Alerts Substance Reaction Severity Status Cats Active Dogs Active Immunizations Given and Recorded Vaccine Date Status Refusal Reason tetanus/diphtheria/pertussis, acel(Tdap) 11/17/21 Given influenza virus vaccine, inactivated 05/07/17 Clif rded Medications diclofenac 1% topical gel 1 application, Topically, 4 times a day, # 100 Gm, 0 Refills, Maintenance, 11/17/21 15:24:00 EDT, Gel, [facility] #[id number], Partial fill upon patient request if the [...]
--- OUTSIDE RECORDS SUMMARY | 2023-07-02 10:08 | XMS_ITS | Continuity of Care Document ---
Author Name Unknown Organization [facility] Address [address] [place] [address]- Care Team Providers Care Leach Runner Name Role Phone Not on Staff, PCP Primary Care Physician Unavail able Encounter [facility] Date(s): 05/06/23 - 06/05/23 [facility] [address] [place] [address] Allergies, Adverse Reactions, Alerts Substance Reaction Severity Status Cats Active Dogs Active Immunizations Given and Recorded Vaccine Date Status Refusal Reason tetanus/diphtheria/pertussis, acel(Tdap) 11/17/21 Given influenza virus vaccine, inactivated 05/07/17 Clif rded Medications diclofenac 1% topical gel 1 application, Topically, 4 times a day, # 100 Gm, 0 Refills, Maintenance, 11/17/21 15:24:00 EDT, Gel, [facility] #[id number], Partial fill upon patient request if the [...] Confirmed Active Tobacco use Confirmed Active 1Through [place] Social History Social History Type Response Smoking Status Never (less than 100 in lifetime) entered on: 11/17/21 Sex Patient Care team information Care Team Personnel Name: Not on Staff, PCP Position: S Physician (General Medicine) Member Role: PCP Care Team Related Persons Name: RHEA GALINDO Address: home [address] [place] [address] Name: TANVIR GONZALEZ Address: home SAME PT
--- OUTSIDE RECORDS SUMMARY | 2023-07-02 10:08 | XMS_ITS | Continuity of Care Document ---
Author Name Unknown Organization [facility] Address [address] [place] [address]- Care Team Providers Care Check Services Clerk Name Role Phone Not on Staff, PCP Primary Care Physician Unavail able Encounter [facility] [place] Date(s): 12/29/21 - 01/28/[address] [address]- Attending Physician: Ashli Herrera Admitting Physician: AdmAshli [...] 0 Refills, Maintenance, 11/17/21 15:24:00 EDT, Gel, [facility] #[id number], Partial fill upon patient request if the [...] te, dependence(Confirmed) Active Tobacco use(Confirmed) Active 1Through [place] Social History Social History Type Response Smoking Status Never (less than 100 in lifetime) entered on: 11/17/21 Sex
--- OUTSIDE RECORDS SUMMARY | 2023-07-02 10:08 | XMS_ITS | Continuity of Care Document ---
Author Name Unknown Organization [facility] Address [address] [place] [address]- Care Team Providers Care Drum Puller Name Role Phone Not on Staff, PCP Primary Care Physician Unavail able [place] [facility] Date(s): 11/17/21 - 01/22/[address] [address]- Attending Physician: Not on Staff, Attending MD Referring Physician: Evelyne SCENIC DESIGNERRickey Allergies, Adverse Reactions, Alerts Substance Reaction Severity Status Cats Active Dogs Active Immunizations Given and Recorded Vaccine Date Status Refusal Reason tetanus/diphtheria/pertussis, acel(Tdap) 11/17/21 Given influenza virus vaccine, inactivated 05/07/17 Clif rded Medications diclofenac 1% topical gel 1 application, Topically, 4 times a day, # 100 Gm, 0 Refills, Maintenance, 11/17/21 15:24:00 EDT, Gel, [facility] #[id number], Partial fill upon patient request if the [...]
[2023-07-02 10:09] VITALS: BP 112/56; BMI 28.7
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
== END 2023-07-02 10:42 | disposition home or self-care (01) ==
LOC: HO.HWS 10:05
PROVIDERS: Visit Provider Advanced Practice Midwife
DX: Z34.82 Encounter for supervision of other normal pregnancy, second trimester (principal); L29.9 Pruritus, unspecified
CPT/HCPCS: 25942

== ENCOUNTER 2023-07-30 08:05 | Outpatient (AMB) | payer OTHER, SELFPAY ==
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
[2023-07-30 08:25] VITALS: BP 110/66; BMI 30.2
== END 2023-07-30 09:02 | disposition home or self-care (01) ==
LOC: HO.HWS 08:05
PROVIDERS: Visit Provider Advanced Practice Midwife
DX: Z23 Encounter for immunization (principal)
CPT/HCPCS: 25942

== ENCOUNTER 2023-07-30 08:05 | Outpatient (REF) | payer OTHER, SELFPAY ==
[2023-07-31 11:55] LABS: BV Int Neg Control Negative (Negative); BV Int Pos Control Positive (Positive)
== END 2023-07-30 08:06 | disposition home or self-care (01) ==
LOC: HO.LNP 08:05
PROVIDERS: Visit Provider Advanced Practice Midwife
DX: Z34.82 Encounter for supervision of other normal pregnancy, second trimester (principal); Z23 Encounter for immunization; Z3A.22 22 weeks gestation of pregnancy
CPT/HCPCS: 87480; 87510; 87660; 90471; 90686; 99212

== ENCOUNTER 2023-08-27 08:09 | Outpatient (AMB) | payer OTHER, SELFPAY ==
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
[2023-08-27 08:19] VITALS: BP 110/68; BMI 30.2
== END 2023-08-27 08:36 | disposition home or self-care (01) ==
LOC: HO.HWS 08:09
PROVIDERS: Visit Provider Advanced Practice Midwife
DX: Z34.90 Encounter for supervision of normal pregnancy, unspecified, unspecified trimester (principal)
CPT/HCPCS: 25942

== ENCOUNTER 2023-08-27 08:09 | Outpatient (REF) | payer OTHER, SELFPAY ==
[2023-08-27 10:17] LABS: Hematocrit 34.4 % (37.0-47.0); Hemoglobin 11.9 g/dl (12.0-16.0); Mean Corpuscular HGB Conc 34.6 g/dl (31.0-35.0); Mean Corpuscular Hemoglobin 30.1 pg (27.0-33.0); Mean Corpuscular Volume 86.9 fL (80.0-98.0); Mean Platelet Volume 9.3 fL (9.4-12.3); Platelet Count 408 X10*3/uL (160-400); Red Blood Count 3.96 X10*6/uL (4.20-5.50); Red Cell Distribution Width 12.9 % (11.0-16.0)
[2023-08-27 10:47] LABS: Glucose 1 Hour PP 50gm Dose 151 mg/dL (60-140)
[2023-08-27 11:14] LABS: Syphilis Screen Nonreactive (Nonreactive)
== END 2023-08-27 08:10 | disposition home or self-care (01) ==
LOC: HO.LAB 08:09
PROVIDERS: Visit Provider Advanced Practice Midwife
DX: O09.522 Supervision of elderly multigravida, second trimester (principal); Z3A.26 26 weeks gestation of pregnancy; Z20.2 Contact with and (suspected) exposure to infections with a predominantly sexual mode of transmission
CPT/HCPCS: 36415; 82950; 85027; 86780; 99212

== ENCOUNTER 2023-08-30 08:06 | Outpatient (REF) | payer OTHER, SELFPAY | END 2023-08-30 08:07 | disposition home or self-care (01) | LOC: HO.LAB 08:06 | PROVIDERS: Visit Provider Advanced Practice Midwife | DX: O99.810 Abnormal glucose complicating pregnancy (principal); Z3A.00 Weeks of gestation of pregnancy not specified | CPT/HCPCS: 36415; 82951 ==

== ENCOUNTER 2023-09-01 09:18 | Outpatient (AMB) | payer OTHER, SELFPAY ==
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
[2023-09-01 09:27] VITALS: BP 118/70; BMI 30.2
--- NOTE | 2023-09-01 10:38 | AM.OFFVISNUR ---
Intake Vital Signs 09/01/23 09:27 Height 5 ft 1 in Weight 160 lb BMI 30.2 BP 118/70 Intake Visit Reasons: GDM Allergies No Known Allergies Allergy (Unknown, Verified 09/01/23 09:28) Nursing Note Pt here with supplies for GDM teaching at 27w0d. Demonstration of how to check BS using meter and pt was able to return demonstration. BS goals for fasting less than 95 and 2 hours postprandial less than 120 reviewed. GDM dietary guidelines reviewed with emphasis on increasing lean proteins, non-starch vegetables, and fiber with decreased carbohydrate and sugar intake. Discussed importance of keeping BS under control to reduce the risk of the following which includes but not limited to: macrosomia, increased rate, shoulder dystocia, congenital anomalies, mortality and increased risk of preeclampsia as well as risk of DM in the future. BS log/weekly dietary intake log given to patient to complete and bring to next visit. Patient verbalized understanding to all and agrees with plan. JAREN/GDM visit with Dr Hartley on 09/06/23. Coding
== END 2023-09-01 09:50 | disposition home or self-care (01) ==
LOC: HO.HWS 09:18
PROVIDERS: Visit Provider Obstetrics & Gynecology
DX: Z34.90 Encounter for supervision of normal pregnancy, unspecified, unspecified trimester (principal)
CPT/HCPCS: 25942

== ENCOUNTER → 2023-09-01 09:18 | Outpatient (BNVA) | payer OTHER, SELFPAY | PROVIDERS: Visit Provider Obstetrics & Gynecology | DX: O24.419 Gestational diabetes mellitus in pregnancy, unspecified control (principal); Z3A.27 27 weeks gestation of pregnancy | CPT/HCPCS: 99212 ==

== ENCOUNTER 2023-09-06 09:26 | Outpatient (AMB) | payer OTHER, SELFPAY ==
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
[2023-09-06 09:28] VITALS: BP 100/60; BMI 30.2
== END 2023-09-06 09:53 | disposition home or self-care (01) ==
LOC: HO.HWS 09:26
PROVIDERS: Visit Provider Obstetrics & Gynecology
DX: Z34.93 Encounter for supervision of normal pregnancy, unspecified, third trimester (principal); Z34.82 Encounter for supervision of other normal pregnancy, second trimester
CPT/HCPCS: 25942

== ENCOUNTER → 2023-09-06 09:26 | Outpatient (BNVA) | payer OTHER, SELFPAY | PROVIDERS: Visit Provider Obstetrics & Gynecology | DX: Z34.82 Encounter for supervision of other normal pregnancy, second trimester (principal); Z3A.27 27 weeks gestation of pregnancy | CPT/HCPCS: 81003; 99212 ==

== ENCOUNTER 2023-09-10 12:43 | Outpatient (AMB) | payer OTHER, SELFPAY ==
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
[2023-09-10 12:50] VITALS: BP 98/58; BMI 29.5
== END 2023-09-10 14:00 | disposition home or self-care (01) ==
LOC: HO.HWS 12:43
PROVIDERS: Visit Provider Advanced Practice Midwife
DX: Z34.90 Encounter for supervision of normal pregnancy, unspecified, unspecified trimester (principal)
CPT/HCPCS: 25942; S3005

== ENCOUNTER → 2023-09-10 12:43 | Outpatient (BNVA) | payer OTHER, SELFPAY | PROVIDERS: Visit Provider Advanced Practice Midwife | DX: O09.523 Supervision of elderly multigravida, third trimester (principal); Z3A.28 28 weeks gestation of pregnancy | CPT/HCPCS: 99212 ==

== ENCOUNTER 2023-09-15 12:03 | Outpatient (AMB) | payer OTHER, SELFPAY ==
[2023-09-15 12:41] VITALS: BP 112/60; BMI 29.2
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
== END 2023-09-15 12:52 | disposition home or self-care (01) ==
LOC: HO.HWS 12:03
PROVIDERS: Visit Provider Obstetrics & Gynecology
DX: Z34.82 Encounter for supervision of other normal pregnancy, second trimester (principal); O24.419 Gestational diabetes mellitus in pregnancy, unspecified control
CPT/HCPCS: 25942

== ENCOUNTER → 2023-09-15 12:03 | Outpatient (BNVA) | payer OTHER, SELFPAY | PROVIDERS: Visit Provider Obstetrics & Gynecology | DX: O09.523 Supervision of elderly multigravida, third trimester (principal); O24.410 Gestational diabetes mellitus in pregnancy, diet controlled; Z3A.29 29 weeks gestation of pregnancy | CPT/HCPCS: 99212 ==

== ENCOUNTER 2023-09-22 08:00 | Outpatient (AMB) | payer OTHER, SELFPAY ==
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
[2023-09-22 08:05] VITALS: BP 110/68; BMI 29.5
== END 2023-09-22 08:18 | disposition home or self-care (01) ==
LOC: HO.HWS 08:00
PROVIDERS: Visit Provider Obstetrics & Gynecology
DX: Z34.90 Encounter for supervision of normal pregnancy, unspecified, unspecified trimester (principal)
CPT/HCPCS: 25942; 59426

== ENCOUNTER → 2023-09-22 08:00 | Outpatient (BNVA) | payer OTHER, SELFPAY | PROVIDERS: Visit Provider Obstetrics & Gynecology | DX: O09.523 Supervision of elderly multigravida, third trimester (principal); O24.415 Gestational diabetes mellitus in pregnancy, controlled by oral hypoglycemic drugs; Z3A.30 30 weeks gestation of pregnancy | CPT/HCPCS: 99212 ==

== ENCOUNTER 2023-12-10 12:48 | Outpatient (AMB) | payer OTHER, SELFPAY ==
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
== END 2023-12-10 15:54 | disposition home or self-care (01) ==
LOC: HO.HWS 12:48
PROVIDERS: Visit Provider Advanced Practice Midwife
DX: L29.2 Pruritus vulvae (principal); O70.1 Second degree perineal laceration during delivery
CPT/HCPCS: 99213

== ENCOUNTER → 2023-12-10 12:48 | Outpatient (BNVA) | payer OTHER, SELFPAY | PROVIDERS: Visit Provider Advanced Practice Midwife ==

== ENCOUNTER 2024-01-12 08:33 | Outpatient (AMB) | payer OTHER, SELFPAY ==
[2024-01-12 08:39] VITALS: BP 102/60; BMI 28.5
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
== END 2024-01-12 09:13 | disposition home or self-care (01) ==
PROVIDERS: Visit Provider Advanced Practice Midwife
DX: Z39.2 Encounter for routine postpartum follow-up (principal)
CPT/HCPCS: 59430

== ENCOUNTER → 2024-01-12 08:33 | Outpatient (BNVA) | payer OTHER, SELFPAY | PROVIDERS: Visit Provider Advanced Practice Midwife ==

== ENCOUNTER 2024-05-19 10:03 | Outpatient (AMB) | payer OTHER, SELFPAY ==
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
[2024-05-19 10:16] VITALS: BP 100/58
== END 2024-05-19 10:47 | disposition home or self-care (01) ==
LOC: HO.HWS 10:03
PROVIDERS: Visit Provider Advanced Practice Midwife
DX: Z30.017 Encounter for initial prescription of implantable subdermal contraceptive (principal); Z32.02 Encounter for pregnancy test, result negative
CPT/HCPCS: 11981

== ENCOUNTER → 2024-05-19 10:03 | Outpatient (BNVA) | payer OTHER, SELFPAY | PROVIDERS: Visit Provider Advanced Practice Midwife | DX: Z30.017 Encounter for initial prescription of implantable subdermal contraceptive (principal); Z32.02 Encounter for pregnancy test, result negative | CPT/HCPCS: 11981; 81025; J7307 ==

== ENCOUNTER 2024-07-14 14:24 | Outpatient (REF) | payer OTHER, SELFPAY ==
[2024-07-15 05:52] LABS: CT PCR NOT DETECTED (Not Detect.); NG PCR NOT DETECTED (Not Detect.)
[2024-07-15 12:39] LABS: Bacterial Vaginosis PCR POSITIVE (Negative); Candida Group PCR NOT DETECTED (Not Detect); Candida glab krusei PCR NOT DETECTED (Not Detect); Trichomonas vaginalis PCR DETECTED (Not Detect)
== END 2024-07-14 14:25 | disposition home or self-care (01) ==
LOC: HO.LNP 14:24
PROVIDERS: Visit Provider Advanced Practice Midwife
DX: N89.8 Other specified noninflammatory disorders of vagina (principal); Z32.02 Encounter for pregnancy test, result negative
CPT/HCPCS: 0352U; 81025; 87491; 87591; 99212

== ENCOUNTER 2024-07-14 14:24 | Outpatient (AMB) | payer OTHER, SELFPAY ==
[2024-07-14 14:27] VITALS: BP 100/68; BMI 29.1
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
== END 2024-07-14 15:12 | disposition home or self-care (01) ==
LOC: HO.HWS 14:24
PROVIDERS: Visit Provider Advanced Practice Midwife
DX: Z32.02 Encounter for pregnancy test, result negative (principal); N89.8 Other specified noninflammatory disorders of vagina
CPT/HCPCS: 99213